=== PATIENT | female | born 1950 | race Caucasian/White ===

== ENCOUNTER 2022-03-19 09:14 | Outpatient (REF) | payer MEDICARE, BC, SELFPAY ==
--- NOTE | ~2022-03-19 | MM_ITS ---
EXAMINATION: MM SCREENING DIGITAL BREAST TOMOSYNTHESIS, BILATERAL CLINICAL INFORMATION: Screening. Asymptomatic. The lifetime risk of breast cancer based on the Tyrer-Cuzick Model is 10%. COMPARISON: Outside mammography: 07/09/2020, 07/06/2019, 02/07/2018 (Melissa Sorto). TECHNIQUE: Digital breast tomosynthesis is performed in both the craniocaudal and mediolateral oblique views along with computer-aided detection (CAD). Synthesized 2D images are generated from the tomosynthesis. Additional left MLO view is provided. FINDINGS: The breasts are heterogeneously dense, which may obscure small masses (ACR BI-RADS breast composition Category c). There is no significant mass, developing density, architectural abnormality. There are scattered benign round calcifications in both breasts. The axilla and skin contours are unremarkable. 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 MM/MM tomosynthesis screening BI IMPRESSION: No significant changes from prior studies. ASSESSMENT: BI-RADS 2: Benign RECOMMENDATION: Routine annual mammography screening. This patient's information was entered into a reminder system with a target due date for their next mammogram.
== END 2022-03-19 09:15 | disposition home or self-care (01) ==
LOC: HO.MAMMO 09:14
PROVIDERS: Visit Provider Internal Medicine
DX: Z12.31 Encounter for screening mammogram for malignant neoplasm of breast (principal)
CPT/HCPCS: 77063; 77067

== ENCOUNTER 2023-06-14 09:59 | Outpatient (REF) | payer MEDICARE, BC, SELFPAY ==
[2023-06-14 11:29] LABS: MANUAL DIFF FLAG NO
[2023-06-14 11:36] LABS: Basophils Absolute Auto 0.1 X10*3/uL (0.0-0.2); Eosinophils Absolute Auto 0.3 X10*3/uL (0.0-0.4); Eosinophils Percent Auto 3.6 % (0-4); Imm Gran Abs Auto 0.02 X10*3/uL (0.00-0.03); Imm Gran Pct Auto 0.2 % (0.0-0.4); Lymphocytes Absolute Auto 2.5 X10*3/uL (1.2-4.9); Lymphocytes Percent Auto 29.2 % (20-40); Mean Corpuscular HGB Conc 33.3 g/dl (31.0-35.0); Mean Corpuscular Hemoglobin 29.8 pg (27.0-33.0); Mean Corpuscular Volume 89.4 fL (80.0-98.0); Mean Platelet Volume 11.8 fL (9.4-12.3); Monocytes Absolute Auto 0.9 X10*3/uL (0.1-1.2); Monocytes Percent Auto 10.6 % (2-11); Neutrophils Absolute Auto 4.7 x10*3/uL (2.0-8.3); Neutrophils Percent Auto 55.4 % (45-73); Platelet Count 211 X10*3/uL (160-400); White Blood Count 8.4 X10*3/uL (4.8-10.8)
[2023-06-14 12:16] LABS: Alanine Aminotransferase 15 U/L (0-31); Albumin Level 4.5 g/dL (3.5-5.0); Alkaline Phosphatase 47 U/L (39-117); Anion Gap 17 (12-20); Aspartate Amino Transferase 21 U/L (5-31); Bilirubin Total 0.8 mg/dL (0.0-1.0); Blood Urea Nitrogen 9 mg/dL (9-16); Calcium 10.6 mg/dL (8.4-10.2); Carbon Dioxide 23 mmol/L (22-29); Chloride 99 mmol/L (96-108); Cholesterol 194 mg/dL (<200); Estimated Glomerular Filt Rate > 60; Glucose Random 98 mg/dL (60-115); HDL Cholesterol 84 mg/dL (>40); LDL Cholesterol Calculated 91 mg/dL (<100); Potassium 4.5 mmol/L (3.3-5.1); Sodium 134 mmol/L (135-145); Total Protein 8.5 g/dL (6.5-8.0); Triglycerides 95 mg/dL (<150)
== END 2023-06-14 10:00 | disposition home or self-care (01) ==
LOC: HO.HHCL 09:59
PROVIDERS: Visit Provider Nurse Practitioner Family
DX: I10 Essential (primary) hypertension (principal)
CPT/HCPCS: 36415; 80053; 80061; 85025

== ENCOUNTER 2023-08-04 09:34 | Outpatient (REF) | payer MEDICARE, BC, SELFPAY ==
--- NOTE | ~2023-08-04 | MR_ITS ---
EXAMINATION: MR BREAST WITHOUT AND WITH CONTRAST, BILATERAL CLINICAL INFORMATION: High-risk screening. Family history of breast cancer, paternal grandmother. COMPARISON: No previous breast MRI. TECHNIQUE: Imaging was performed with a dedicated breast coil. Prior to the administration of contrast, bilateral axial T1 and bilateral axial T2 weighted sequences were obtained. After the uneventful administration of?10 mL of Gadavist, dynamic contrast-enhanced VIBRANT series through the breasts in the axial plane were performed. Subtracted images were performed and reviewed. A delayed sagittal sequence through both breasts was acquired. Additionally, CAD post-processing, including maximum intensity projections, 3-D reconstructions and kinetic analysis, were performed an independent workstation and reviewed by the interpreting radiologist is a portion of this exam. FINDINGS: LEFT BREAST: There are scattered foci of enhancement. No suspicious masslike or non-masslike enhancement. No abnormal skin thickening or nipple retraction. No abnormal architectural distortion. Review of the T2 weighted images demonstrates no fibrocystic changes or dilated ducts. Review of kinetic images reveals no additional findings. RIGHT BREAST: In the 8:00 position of the right breast there is a short segment of nonmass enhancement located 8.2 cm from the nipple measuring 7 mm in size. No recent mammogram to compare 2. Recommend mammographic correlation. The kinetics are plateau or type II. If no mammographic correlate to this finding can be identified, consider MRI guided biopsy for further evaluation. No other suspicious masslike or non-masslike enhancement. No abnormal skin thickening or nipple retraction. No abnormal architectural distortion. Review of the T2 weighted images demonstrates no fibrocystic changes or dilated ducts. Review of kinetic images reveals no additional findings. There is no suspicious internal mammary chain or axillary adenopathy. Partially imaged T2 hyperintense structure within the left lobe of the liver is consistent with a benign cyst. MR/MR breast BI wo/w con IMPRESSION: No MR specific evidence of left breast malignancy. Indeterminate right breast nonmass enhancement, 8:00. Mammographic correlation recommended. ASSESSMENT: LEFT BREAST: BI-RADS 1-Negative RIGHT BREAST: BI-RADS 0 - Incomplete. RECOMMENDATIONS: Mammographic correlation recommended. Patient overdue for screening mammogram.
[2023-08-04] MEDS: gadobutroL 10 ML VIAL IVPUSH (10:54)
== END 2023-08-04 09:35 | disposition home or self-care (01) ==
LOC: HO.MRI 09:34
PROVIDERS: PCP Nurse Practitioner Family; Visit Provider Nurse Practitioner Family
DX: R92.333 Mammographic heterogeneous density, bilateral breasts (principal); R92.8 Other abnormal and inconclusive findings on diagnostic imaging of breast
CPT/HCPCS: 77049; A9585

== ENCOUNTER 2024-07-20 14:51 | Outpatient (REF) | payer MEDICARE, BC, SELFPAY ==
[2024-07-20 16:15] LABS: MANUAL DIFF FLAG NO
[2024-07-20 16:29] LABS: Basophils Absolute Auto 0.1 X10*3/uL (0.0-0.2); Basophils Percent Auto 0.8 % (0-2); Eosinophils Absolute Auto 0.3 X10*3/uL (0.0-0.4); Eosinophils Percent Auto 3.7 % (0-4); Hemoglobin 13.6 g/dl (12.0-16.0); Imm Gran Abs Auto 0.02 X10*3/uL (0.00-0.03); Imm Gran Pct Auto 0.2 % (0.0-0.4); Lymphocytes Percent Auto 34.1 % (20-40); Mean Corpuscular Hemoglobin 28.9 pg (27.0-33.0); Mean Corpuscular Volume 84.9 fL (80.0-98.0); Mean Platelet Volume 12.2 fL (9.4-12.3); Monocytes Absolute Auto 0.9 X10*3/uL (0.1-1.2); Monocytes Percent Auto 10.3 % (2-11); Neutrophils Absolute Auto 4.4 x10*3/uL (2.0-8.3); Neutrophils Percent Auto 50.9 % (45-73); Platelet Count 253 X10*3/uL (160-400); Red Blood Count 4.71 X10*6/uL (4.20-5.50); Red Cell Distribution Width 13.6 % (11.0-16.0); White Blood Count 8.7 X10*3/uL (4.8-10.8)
[2024-07-20 16:58] LABS: Alanine Aminotransferase 20 U/L (0-31); Albumin Level 4.4 g/dL (3.5-5.0); Alkaline Phosphatase 50 U/L (39-117); Anion Gap 11 (12-20); Aspartate Amino Transferase 32 U/L (5-31); Bilirubin Total 0.5 mg/dL (0.0-1.0); Blood Urea Nitrogen 11 mg/dL (9-16); Calcium 9.8 mg/dL (8.4-10.2); Carbon Dioxide 26 mmol/L (22-29); Chloride 98 mmol/L (96-108); Cholesterol 184 mg/dL (<200); Estimated Glomerular Filt Rate > 60; Glucose Random 97 mg/dL (60-115); HDL Cholesterol 85 mg/dL (>40); LDL Cholesterol Calculated 81 mg/dL (<100); Sodium 131 mmol/L (135-145); Total Protein 7.7 g/dL (6.5-8.0); Triglycerides 92 mg/dL (<150)
[2024-07-20 17:15] LABS: TSH reflex Free T4 1.43 uIU/mL (0.32-4.0)
[2024-07-21 08:03] LABS: ~Hepatitis C Antibody Nonreactive (Nonreactive)
== END 2024-07-20 14:52 | disposition home or self-care (01) ==
LOC: HO.HHCL 14:51
PROVIDERS: Visit Provider Internal Medicine
DX: I10 Essential (primary) hypertension (principal); M79.7 Fibromyalgia
CPT/HCPCS: 36415; 80053; 80061; 84443; 85025; 86803

== ENCOUNTER 2024-12-27 11:57 | Outpatient (REF) | payer MEDICARE, BC, SELFPAY ==
--- OUTSIDE RECORDS SUMMARY | 2024-12-27 13:28 | XMS_ITS | Encounter Summary ---
Author Organization [employer] Address [address] [facility] [address] [place] [address] Care Team Providers Care Glove Examiner Name Role Phone Kat Parkinson Primary Care Provider [phone] Lila, Darien MAYER Primary Care Provider [phone] Shanel Euceda NP Primary Care Provider [phone] Anamika Phelps MD Primary Care Provide r Reason for Referral * Imaging (Routine) - Closed Specialty Diagnoses / Procedures Referred By Rita botello Referred To Contact Radiology Diagnoses Abnormal finding on mammography Procedures BI Mammogram Diagnostic Tomosynthesis Bilateral Kat Parkinson FNP [address] [place] [address] Phone: tel: fax: [address] Phone: tel: fax: Referral ID Status Reason Start Date Expiration Date Visits Re quested Visits Authorized [id number] Closed 11/02/2023 11/01/2024 1 1 Encounter Details Date Type Department Care Team (Late st Contact Info) Description 11/02/2023 Orders Only [facility] [address] [place] [address] Kat Parkinson FNP [address] [place] [address] Abnormal finding on mammography (Primary Dx) Social History Tobacco Use Types Packs/Day Years Used Date Smoking Tobacco: Former Cigarettes Smokeless Tobacco: Never Comments:Quit 47 years ago Alcohol Use Standard Drinks/Week Comments Yes 0 (1 standard drink = 0.6 oz pur e alcohol) 6 glasses per week Depression Answer Date Recorded Patient Health Questionnaire-9 Score 7 06/14/2023 Patient Health Questionnaire-9 Score 7 06/14/2023 Last PHQ-9: Questionnaire Data Not on file 1 Housing Stability Answer Date Recorded What is your housing situation today? I have ranjana brooks 06/14/[address] you li ve. Do you have problems with any of the following? None of the above 06/14/2023 Food Insecurity Answer Date Recorded Within the past 12 months, y ou worried that your food would run out before you got money to buy more: Never True 06/14/2023 Within the past 12 months,th e food you bought just didn't last and you didn't have enough money to get more: Never True Transportation Answer Date Recorded In the past 12 months, has l ack of transportation kept you from medical appts, meetings, work or from getting things needed for daily living? No 06/14/2023 Utilities Answer Date Recorded In the past 12 months, has t he electric, gas, oil or water company threatened to shut off services in your home? No 06/14/2023 Depression Answer Date Recorded Patient Health Questionnaire-2 Score 1 06/14/2023 Comments Unknown Sex and Gender Information Value Date Recorded Sex Assigned at Female 06/29/2022 10:40 AM EDT Legal Sex Female 10:40 AM EDT Gender Identity Female 06/29/2022 10:40 AM EDT Sexual Orientation Straight 06/29/2022 10 :40 AM EDT documented as of this encounter Plan of Treatment Scheduled Orders Name Type Priority Associated Diagnoses Orde r Schedule BI Mammogram Diagnostic Tomosynthesis Bilateral Imaging Routine Abnormal finding on mammography Expected: 11/02/2023, Expires: 01/01/2025 documented as of this encounter Visit Diagnoses Diagnosis Abnormal finding on mammography- Primary documented in this encounter Additional Health Concerns Assessment Noted Time PHQ-9 Depression Total Score: 7 06/14/20 23 10:28 AM EDT documented as of this encounter Care Teams Glove Examiner Relationship Specialty Start Date End Date Kat Parkinson FNP [address] [place] [address] PCP - General Family Medicine 06/09/22 05/02/24 Darien Sharp MD [address] [place] [address] [id number] PCP - General Internal Medicine 05/03/24 05/29/24 Shanel Euceda NP [address] [place], [place] [id number] PCP - General Family Medicine 05/30/24 06/20/24 Anamika Phelps MD [address] [place] [address] [id number] PCP - General Internal Medicine 06/21/24 documented as of this encounter
--- OUTSIDE RECORDS SUMMARY | 2024-12-27 13:28 | XMS_ITS | Encounter Summary ---
Author Organization [employer] Address [address] [facility] [address] [place] [address] Care Team Providers Care Cnc Operator Name Role Phone Kat Parkinson Primary Care Provider [phone] Darien Sharp MD Primary Care Provider [phone] Shanel Euceda NP Primary Care Provider [phone] Anamika Phelps MD Primary Care Provide r Encounter Details Date Type Department Care Team (Late st Contact Info) Description 08/07/2022 Orders Only [facility] [address] [place] [address] Kat Parkinson FNP [address] [place] [address] Primary hypertension (Primary Dx) Social History Tobacco Use Types Packs/Day Years Used Date Smoking Tobacco: Never Assessed Comments Unknown Sex and Gender Information Value Date Recorded Sex Assigned at Female 06/29/2022 10:40 AM EDT Legal Sex Female 10:40 AM EDT Gender Identity Female 06/29/2022 10:40 AM EDT Sexual Orientation Straight 06/29/2022 10 :40 AM EDT COVID-19 Exposure Response Date Recorded In the last 10 days, have yo u been in contact with someone who was confirmed or suspected to have Coronavirus/COVID-19? No / Unsure 08/07/2022 2:14 PM EST documented as of this encounter Plan of Treatment Scheduled Orders Name Type Priority Associated Diagnoses Orde r Schedule Basic Metabolic Panel Lab Routine Primary hypertension Expected: 08/07/2022 (Approximate), Expires: 08/07/2023 documented as of this encounter Visit Diagnoses Diagnosis Primary hypertension- Primary Unspecified essential hypertension documented in this encounter Care Teams Cnc Operator Relationship Specialty Start Date End Date Kat Parkinson FNP [address] [place] [address] PCP - General Family Medicine 06/09/22 05/02/24 Darien Sharp MD [address] [place] [id number] PCP - General Internal Medicine 05/03/24 05/29/24 Shanel Euceda NP [address] [place] [address] [id number] PCP - General Family Medicine 05/30/24 06/20/24 Anamika Phelps MD [address] [place] [id number] PCP - General Internal Medicine 06/21/24 documented as of this encounter
--- OUTSIDE RECORDS SUMMARY | 2024-12-27 13:28 | XMS_ITS | Clinical Summary ---
Author Organization [employer] Address [address] [facility] [address] [place] [address] Care Team Providers Care Business Test Analyst Name Role Phone Anamika Phelps MD Primary Care Provide r Allergies Active Allergy Reactions Criticality Noted Date Comments Cefuroxime Nausea 09/03/2023 Modified Tree Tyrosine Adsorbate Medications cholecalciferol (Vitamin D-3) 25 MCG (1000 UT) tablet Take 1 tablet (25 mcg) by mouth Once per day. 90 tablet 3 01/03/2024 5 Active cyanocobalamin (Vitamin B-12) 500 MCG tablet Take 1 tablet (500 mcg) by mouth Once per day. Take 1 Tablet by Oral route every day 90 tablet 3 01/03/2024 5 Active lisinopril 30 MG tabletIndication s:Hypertension, unspecified type Take 1 tablet (30 mg) by mouth Once per day. 90 tablet 3 05/30/2024 5 Active sodium chloride 1 g tabletIndication s:Hyponatremia Take 1 tablet (1 g) by mouth every 12 (twelve) hours. 6 tablet 08/04/2024 5 Active amLODIPine (Norvasc) 10 MG tabletIndication s:Hyponatremia TAKE 1 TABLET BY MOUTH EVERY DAY 90 tablet 1 10/31/2024 Active Active Problems Problem Noted Date Diagnosed Date Edema of left lower extremity 12/27/2024 Assessment & Plan (12/27/2024 12:37 PM EDT): DVT is unlikely, I will order Doppler ultrasound refer patient to vascular I will also prescribe for patient compression stockings Varicose veins of both legs with edema Assessment & Plan (12/27/2024 12:36 PM EDT): I will order Doppler ultrasound and refer patient to vascular Hyponatremia 12/27/2024 Assessment & Plan (12/27/2024 12:37 PM EDT): I will order a BMP to monitor the sodium level Encounter for screening mamm ogram for malignant neoplasm of breast 12/27/2024 Colon cancer screening declined 12/27/2024 Fibromyalgia 07/20/2024 Assessment & Plan (07/20/2024 4:15 PM EST): Patient was educated about multidisciplinary approach for her condition, it was advise cardiovascular exercise, maintain hydration, treat anxiety/depression and take medications as directed Primary hypertension 07/20/2024 Assessment & Plan (12/27/2024 12:36 PM EDT): Advised: - Aerobic exercise to reduce BP. Initial goal of 30 min walk 3-5x/week. Increase as tolerated. - low-sodium diet (goal: <2g/day) and heart healthy diet such as DASH to reduce BP and prevent ASCVD. - Home BP monitoring 1-2 x day with goal of <140/90. - Seek immediate medical attention for chest pain, palpitations, SOB, syncope, or sudden changes in mental status. - Do not change or discontinue current prescriptions without first consulting health care provider Assessment & Plan (07/20/2024 4:14 PM EST): Maintenance: BMP: ordered Lipid Panel: ordered ASCVD Risk: Calculate pending updated labs -Today BP elevated check with both manual and electronic device, she declines prescription for BP machine, RTC 2 weeks with nurse for BP check - Aerobic exercise to reduce BP. Initial goal of 30 min walk 3-5x/week. Increase as tolerated. - low-sodium diet (goal: <2g/day) and heart healthy diet such as DASH to reduce BP and prevent ASCVD. - Home BP monitoring 1-2 x day with goal of <140/90. - Seek immediate medical attention for chest pain, palpitations, SOB, syncope, or sudden changes in mental status. - Do not change or discontinue current prescriptions without first consulting health care provider Encounters Date Type Department Care Team Description 12/27/2024 10:45 AM EDT Office Visit [facility] [address] [place] [phone] Anamika Phelps MD Edema of left lower extremity (Primary Dx); Varicose veins of both legs with edema; Hyponatremia; Primary hypertension; Encounter for screening mammogram for malignant neoplasm of breast; Colon cancer screening declined; Encounter for immunization 12/27/2024 Travel 12/20/2024 Patient Outreach [address] [id number] Anamika Phelps MD Pre-visit Planning (Pre visit planning LVM ) 11/10/2024 Population Health Risk Score [facility] ([facility]) Department [address] [place] [phone] Provider, Population Health Generic 11/03/[address] [phone] Anamika Phelps MD 10/30/[address] [phone] Anamika Phelps MD Hyponatremia 10/12/2024 Patient Outreach [address] [address] Anamika Phelps MD Pre-visit Planning ((Unable to reach for PVP screening, LVM)) from Last 3 Months Immunizations Name Administration Dates Next Due Pneumococcal Conjugate PCV 13 02/17/2018 Pneumococcal Conjugate PCV 20 12/27/2024 Td (adult), unspecified 04/29/2005 Tdap 12/09/2015 Family History Medical History Relation Name Comments Heart disease Father Alzheimer's disease Mother Stroke Mother Relation Name Status Comments Father Mother Social History Tobacco Use Types Packs/Day Years Used Date Smoking Tobacco: Former Cigarettes Passive Smoke Exposure: Past Smokeless Tobacco: Never Tobacco Cessation:Counseling Given: Not Answered Comments:Quit 47 years ago Alcohol Use Standard Drinks/Week Comments Yes 0 (1 standard drink = 0.6 oz pur e alcohol) 6 glasses per week Depression Answer Date Recorded Patient Health Questionnaire-9 Score 0 07/20/2024 Patient Health Questionnaire-9 Score 0 07/20/2024 Last PHQ-9: Questionnaire Data Not on file 1 09/19/2023 Housing Stability Answer Date Recorded What is your housing situation today? I have ranjana brooks 07/20/[address] you li ve. Do you have problems with any of the following? None of the above 07/20/2024 Food Insecurity Answer Date Recorded Within the past 12 months, y ou worried that your food would run out before you got money to buy more: Never True 07/20/2024 Within the past 12 months,th e food you bought just didn't last and you didn't have enough money to get more: Never True Transportation Answer Date Recorded In the past 12 months, has l ack of transportation kept you from medical appts, meetings, work or from getting things needed for daily living? No 07/20/2024 Utilities Answer Date Recorded In the past 12 months, has t he electric, gas, oil or water company threatened to shut off services in your home? No 07/20/2024 Depression Answer Date Recorded Patient Health Questionnaire-2 Score 0 07/20/2024 Internet Access Answer Date Recorded Internet Access Q1 No 07/20/2024 Internet Access Q2 I do not want or need it 07/01 Comments Unknown Sex and Gender Information Value Date Recorded Sex Assigned at Female 06/29/2022 10:40 AM EDT Legal Sex Female 10:40 AM EDT Gender Identity Female 06/29/2022 10:40 AM EDT Sexual Orientation Straight 06/29/2022 10 :40 AM EDT Last Filed Vital Signs Vital Sign Reading Time Taken Comments Blood Pressure 128/72 12/27/2024 10:46 AM EDT Pulse 64 12/27/2024 10:46 AM EDT Temperature 36.4 ??C (97.6 ??F) 12/27/2024 10:46 AM E DT Respiratory Rate 18 12/27/2024 10:46 AM EDT Oxygen Saturation 98% 08/03/2024 12:55 PM EST Inhaled Oxygen Concentration - - Weight 93.7 kg (206 lb 9.6 oz) 12/27/2024 10:46 AM EDT Height 172.7 cm (5' 8 ) 12/27/2024 10:46 AM EDT Body Mass Index 31.41 12/27/2024 10:46 AM EDT Plan of Treatment Health Maintenance Due Date Last Done Comments CT Colonography 1952 FIT DNA/Cologuard 1950 FIT 1950 FOBT 1950 Sigmoidoscopy 1950 Zoster Vaccines (1 of 2) 2002 COVID-19 Vaccine ( season) 2024 Influenza Vaccine (#1) 2024 Colonoscopy 08/20/2024 08/20/2014 Colorectal Cancer Screening 08/20/2024 Alcohol/Substance Use Screening 07/20/2025 07/20/2024 Depression Screening 07/20/2025 07/20/2024, 07/20/20 24 SDOH Screening 07/20/2025 07/20/2024 Mammogram 08/04/2025 08/04/2023, 02/28, 07/09/2020, Additional history exists DTaP/Tdap/Td Vaccines (2 - Td or Tdap) 12/08/2025 12/09/2015, 04/29/2005 Tobacco Screening 12/27/2025 12/27/2024 RSV Patients and Patients Aged 60 years or older (1 - 1-dose 75+ series) 2027 Lipid Panel 07/20/2029 07/20/2024, 05/30, 03/05/2022 Hepatitis C Screening Completed 07/20/2024 Pneumococcal Vaccine: 50+ Years Completed 12/27/2024, 02/17/2018 HIB Vaccines Aged Out No longer eligi ble based on patient's age to complete this topic HPV Vaccines Aged Out No longer eligi ble based on patient's age to complete this topic Hepatitis A Vaccines Aged Out No long er eligible based on patient's age to complete this topic Hepatitis B Vaccines Aged Out No long er eligible based on patient's age to complete this topic IPV Vaccines Aged Out No longer eligi ble based on patient's age to complete this topic Meningococcal Vaccine Aged Out No heidi radha eligible based on patient's age to complete this topic RSV under 20 months Aged Out No longe r eligible based on patient's age to complete this topic Rotavirus Vaccines Aged Out No longer eligible based on patient's age to complete this topic Procedures Procedure Name Priority Date/Time Associated Diagnosis Comments HEPATITIS C AB W/REFL TO HCV RNA, QN, PCR Routine 07/20/2024 2:53 PM EST Hypertension, unspecified type LIPID PANEL, STANDARD Routine 07/20/2024 2:53 PM EST Hypertension, unspecified type BI MR BREAST W AND WO CONTRAST BILATERAL Routine 08/04/2023 10:43 AM EST Heterogeneously dense tissue of both breasts on mammography Abnormal finding on mammography from Last 3 Months or Most Recently Relevant to Health Maintenance Results * Hepatitis C Antibody with Reflex to HCV, RNA, Quantitative, Real-Time PCR (07/20/2024 2:53 PM EST) Hepatitis C Antibody Nonreactive Nonreactive [facility] Comment:Antibodies to HCV no t detected; does not exclude early acuteHCV infection. Blood Venous blood specimen / Unknown 07/20/2024 2:53 PM EST 07/20/2024 4:17 PM EST us Anamika Apple MD LAB BLOOD ORDERABLES Final Result [facility] [address] [place] [phone] * Lipid Panel, Standard (07/20/2024 2:53 PM EST) Triglycerides 92 <150 mg/dL [facility] Comment:Desirable Triglyceri de: less than 150 mg/dLBorderline High Triglyceride 150-199 mg/dLHigh Triglyceride: 200-499 mg/dLVery High Triglyceride: greater than or equal to 5OO mg/dL Cholesterol 184 <200 mg/dL [facility] Comment:Desirable Cholestero l: less than 200 mg/dLBorderline High Cholesterol: 200-239 mg/dLHigh Cholesterol: greater than 239 mg/dL LDL Cholesterol Calculated 81 <100 mg/dL [facility] Comment:Desirable LDL: less than 100 mg/dLNear Optimal/Above Optimal LDL: 110- 129 mg/dLBorderline High LDL: 130-159 mg/dLHigh LDL: 160-189 mg/dLVery High LDL: greater than or equal to 190 mg/dL HDL Cholesterol 85 >40 mg/dL [facility] Comment:Desirable HDL: great er than 40 mg/dL Note: This HDL assay may give artificially low results in patients with liver disease. Blood Venous blood specimen / Unknown 07/20/2024 2:53 PM EST 07/20/2024 4:21 PM EST us Anamika Apple MD LAB BLOOD ORDERABLES Final Result [facility] [address] [place] [address] [phone] * BI MR Breast w and w/o Contrast Bilateral (08/04/2023 10:43 AM EST) Anatomical Region Laterality Modality Breast Bilateral Magnetic Resonan ce 08/04/2023 10:4 3 AM EST Narrative 08/06/2023 4:51 PM EST ? [facility] ?[address] ?[place] [address] ? Magnetic Resonance Report ? Signed ? Patient: Dayan Epperson ?MR#: [id number] ?? 209 ? : 1950 ?Acct:[id number] ? Age/Sex: 73 / F ?ADM Date: 08/04/23 ? Loc: HO.MRI ? Attending Dr: Kat Parkinson DENTAL TECHNICIAN METAL ? Ordering Physician: Kat Parkinson DENTAL TECHNICIAN METAL ?? Date of Service: 08/04/23 ?? Procedure(s): MR breast BI wo/w con ?? Accession Number(s): [id number] ? cc: Kat Parkinson DENTAL TECHNICIAN METAL ? EXAMINATION: ?? MR BREAST WITHOUT AND WITH CONTRAST, BILATERAL ? CLINICAL INFORMATION: ?? High-risk screening. Family history of breast cancer, paternal ?? grandmother. ? COMPARISON: ?? No previous breast MRI. ? TECHNIQUE: ?? Imaging was performed with a dedicated breast coil. Prior to the ?? administration of contrast, bilateral axial T1 and bilateral axial T2 ?? weighted sequences were obtained. After the uneventful administration ?? of?10 mL of Gadavist, dynamic contrast-enhanced VIBRANT series through ?? the breasts in the axial plane were performed. Subtracted images were ?? performed and reviewed. A delayed sagittal sequence through both ?? breasts was acquired. Additionally, CAD post-processing, including ?? maximum intensity projections, 3-D reconstructions and kinetic ?? analysis, were performed an independent workstation and reviewed by the ?? interpreting radiologist is a portion of this exam. ? FINDINGS: ? LEFT BREAST: There are scattered foci of enhancement. No suspicious ?? masslike or non-masslike enhancement. No abnormal skin thickening or ?? nipple retraction. No abnormal architectural distortion. Review of the ?? T2 weighted images demonstrates no fibrocystic changes or dilated ?? ducts. Review of kinetic images reveals no additional findings. ? RIGHT BREAST: In the 8:00 position of the right breast there is a short ?? segment of nonmass enhancement located 8.2 cm from the nipple measuring ?? 7 mm in size. No recent mammogram to compare 2. Recommend mammographic ?? correlation. The kinetics are plateau or type II. If no mammographic ?? correlate to this finding can be identified, consider MRI guided biopsy ?? for further evaluation. No other suspicious masslike or non-masslike ?? enhancement. No abnormal skin thickening or nipple retraction. No ?? abnormal architectural distortion. Review of the T2 weighted images ?? demonstrates no fibrocystic changes or dilated ducts. Review of kinetic ?? images reveals no additional findings. ? There is no suspicious internal mammary chain or axillary adenopathy. ? Partially imaged T2 hyperintense structure within the left lobe of the ?? liver is consistent with a benign cyst. ? MR/MR breast BI wo/w con ?? IMPRESSION: ?? No MR specific evidence of left breast malignancy. ? Indeterminate right breast nonmass enhancement, 8:00. Mammographic ?? correlation recommended. ? ASSESSMENT: ?? LEFT BREAST: BI-RADS 1-Negative ? RIGHT BREAST: BI-RADS 0 - Incomplete. ? RECOMMENDATIONS: ?? Mammographic correlation recommended. Patient overdue for screening ?? mammogram. ? Dictated By: ?Jaqueline Larson MD ? Signed By: ?<Electronically signed by Jaqueline Larson MD in OV> ?08/06/237 ? DD/ ? TD/TT: ? Casing Blower: BATOOL ? Procedure Note Donotuseinterpreter, Image - 08/06/2023 [place] [address] Magnetic Resonance Report Signed Patient: Dayan Epperson#: [id number] 209 : 2Acct:[id number] Age/Sex: 73 / FADM Date: 08/04/23 Loc: HO.MRI Attending Dr: Kat Parkinson NP Ordering Physician: Kat Parkinson NP Date of Service: 08/04/23 Procedure(s): MR breast BI wo/w con Accession Number(s): [id number] cc: Kat Parkinson NP EXAMINATION: MR BREAST WITHOUT AND WITH CONTRAST, BILATERAL CLINICAL INFORMATION: High-risk screening. Family history of breast cancer, paternal grandmother. COMPARISON: No previous breast MRI. TECHNIQUE: Imaging was performed with a dedicated breast coil. Prior to the administration of contrast, bilateral axial T1 and bilateral axial T2 weighted sequences were obtained. After the uneventful administration of?10 mL of Gadavist, dynamic contrast-enhanced VIBRANT series through the breasts in the axial plane were performed. Subtracted images were performed and reviewed. A delayed sagittal sequence through both breasts was acquired. Additionally, CAD post-processing, including maximum intensity projections, 3-D reconstructions and kinetic analysis, were performed an independent workstation and reviewed by the interpreting radiologist is a portion of this exam. FINDINGS: LEFT BREAST: There are scattered foci of enhancement. No suspicious masslike or non-masslike enhancement. No abnormal skin thickening or nipple retraction. No abnormal architectural distortion. Review of the T2 weighted images demonstrates no fibrocystic changes or dilated ducts. Review of kinetic images reveals no additional findings. RIGHT BREAST: In the 8:00 position of the right breast there is a short segment of nonmass enhancement located 8.2 cm from the nipple measuring 7 mm in size. No recent mammogram to compare 2. Recommend mammographic correlation. The kinetics are plateau or type II. If no mammographic correlate to this finding can be identified, consider MRI guided biopsy for further evaluation. No other suspicious masslike or non-masslike enhancement. No abnormal skin thickening or nipple retraction. No abnormal architectural distortion. Review of the T2 weighted images demonstrates no fibrocystic changes or dilated ducts. Review of kinetic images reveals no additional findings. There is no suspicious internal mammary chain or axillary adenopathy. Partially imaged T2 hyperintense structure within the left lobe of the liver is consistent with a benign cyst. MR/MR breast BI wo/w con IMPRESSION: No MR specific evidence of left breast malignancy. Indeterminate right breast nonmass enhancement, 8:00. Mammographic correlation recommended. ASSESSMENT: LEFT BREAST: BI-RADS 1-Negative RIGHT BREAST: BI-RADS 0 - Incomplete. RECOMMENDATIONS: Mammographic correlation recommended. Patient overdue for screening mammogram. Dictated By: Jaqueline Larson MD Signed By: <Electronically signed by Jaqueline Larson MD in OV> 08/06/23 1647 DD/ 1043 TD/TT: Casing Blower: BATOOL Kat Parkinson WASTE DUSTER IM MRI PROCEDURES Final Result from Last 3 Months or Most Recently Relevant to Health Maintenance Insurance [facility] MEDEX CARE MEDICARE Care Teams Business Test Analyst Relationship Specialty Start Date End Date Anamika Phelps MD [address] [place] [phone] PCP - General Internal Medicine 06/21/24
--- OUTSIDE RECORDS SUMMARY | 2024-12-27 13:28 | XMS_ITS | Encounter Summary ---
Author Organization [employer] Address [address] [facility] 7t [place] [address] Care Team Providers Care Tight Cooper Name Role Phone Anamika Phelps MD Primary Care Provide r Reason for Referral * Imaging (Routine) - Authorized Specialty Diagnoses / Procedures Referred By Rita botello Referred To Contact Cardiology Diagnoses Edema of left lower extremity Varicose veins of both legs with edema Procedures Vascular US lower extremity venous duplex bilateral Anamika Phelps MD [address] [place] [address] Phone: tel: fax: [address] Phone: tel: fax: Referral ID Status Reason Start Date Expiration Date Visits Requested Visits Authorized [id number] Authorized Perform Procedure 12/27/2024 12/27/2025 1 1 * Consultation (Routine) - Pending Review Specialty Diagnoses / Procedures Referred By Rita botello Referred To Contact Vascular Surgery Diagnoses Edema of left lower extremity Varicose veins of both legs with edema Anamika Phelps MD [address] [place] [address] Phone: tel: fax: Referral ID Status Reason Start Date Expiration Date Visits Requested Visits Authorized [id number] Pending Review Specialty Services Required 12/27/2024 12/27/2025 1 1 Encounter Details Date Type Department Care Team (Late st Contact Info) Description 12/27/2024 10:45 AM EDT Office Visit [facility] MEDICINE [address] [place] [address] Anamika Phelps MD [address] [place] [address] Edema of left lower extremity (Primary Dx); Varicose veins of both legs with edema; Hyponatremia; Primary hypertension; Encounter for screening mammogram for malignant neoplasm of breast; Colon cancer screening declined; Encounter for immunization Social History Tobacco Use Types Packs/Day Years Used Date Smoking Tobacco: Former Cigarettes Passive Smoke Exposure: Past Smokeless Tobacco: Never Comments:Quit 47 years ago [...] is your housing situation today? I have ranjanaamilcar brooks 07/20/[address] you [...] AM EDT documented as of this encounter Last Filed Vital Signs Vital Sign Reading Time Taken Comments Blood Pressure 128/72 12/27/2024 10:46 AM EDT Pulse 64 12/27/2024 10:46 AM EDT Temperature 36.4 ??C (97.6 ??F) 12/27/2024 10:46 AM E DT Respiratory Rate 18 12/27/2024 10:46 AM EDT Oxygen Saturation - - Inhaled Oxygen Concentration - - Weight 93.7 kg (206 lb 9.6 oz) 12/27/2024 10:46 AM EDT Height 172.7 cm (5' 8 ) 12/27/2024 10:46 AM EDT Body Mass Index 31.41 12/27/2024 10:46 AM EDT documented in this encounter Progress Notes * Anamika Apple MD - 12/27/2024 10:45 AM EDT SUBJECTIVE: Kwesi Epperson is a 74 y.o. year old female who presents for comprehensive. Concerns for today's visit: Occupation:retired Lives with:alone Social Hx: Occasionally a glass of wine drinking EtOH, denies smoking cigarettes and denies recreational drug use. Diet:regular Exercise:walks every day Colonoscopy:done in 2013 declines new order Hospitalizations/Surgeries: Eye Care:Patient will schedule her appointment Dental Care:Patient will set up her appointment PMHx:see below Immunizations: PCV20 today Acute Concerns: Since August 2024 edema on left LE, patient denies recent travels or prolonged stay in bed, patient reports edema goes away after elevation of the legs at at night but then he returns, patient also is complaining of painful prominent varicose veins on both legs Social History Social History Narrative Not on file Patient Active Problem List Diagnosis Fibromyalgia Primary hypertension Edema of left lower extremity Varicose veins of both legs with edema Hyponatremia Encounter for screening mammogram for malignant neoplasm of breast Colon cancer screening declined Family History Problem Relation Name Age of Onset Alzheimer's disease Mother Stroke Mother Heart disease Father Review of Systems Constitutional: Negative. HENT: Negative. Respiratory: Negative. Cardiovascular: Positive for leg swelling. Negative for chest pain and palpitations. Musculoskeletal: Positive for arthralgias and myalgias. OBJECTIVE: Vitals: 12/27/24 1046 BP: 128/72 BP Location: Left arm Patient Position: Sitting BP Cuff Size: Large adult Pulse: 64 Resp: 18 Temp: 97.6 ??F (36.4 ??C) TempSrc: Oral Weight: 206 lb 9.6 oz (93.7 kg) Height: 5' 8 (1.727 m) Physical Exam Constitutional: Appearance: Normal appearance. Cardiovascular: Rate and Rhythm: Normal rate and regular rhythm. Pulmonary: Effort: Pulmonary effort is normal. Breath sounds: Normal breath sounds. Abdominal: General: Abdomen is flat. Palpations: Abdomen is soft. Musculoskeletal: Right lower leg: No edema. Left lower le+ Pitting Edema present. Left ankle: Swelling present. Left foot: Swelling present. Comments: Prominent varicose veins on both lower extremities very prominent and tender to touch Neurological: Mental Status: She is alert. Follow Up: No follow-ups on file. Current Outpatient Medications on File Prior to Visit Medication Sig Dispense Refill amLODIPine (Norvasc) 10 MG tablet TAKE 1 TABLET BY MOUTH EVERY DAY 90 tablet 1 cholecalciferol (Vitamin D-3) 25 MCG (1000 UT) tablet Take 1 tablet (25 mcg) by mouth Once per day.90 tablet 3 cyanocobalamin (Vitamin B-12) 500 MCG tablet Take 1 tablet (500 mcg) by mouth Once per day. Take 1 Tablet by Oral route every day 90 tablet 3 lisinopril 30 MG tablet Take 1 tablet (30 mg) by mouth Once per day. 90 tablet 3 sodium chloride 1 g tablet Take 1 tablet (1 g) by mouth every 12 (twelve) hours. 6 tablet 0 No current facility-administered medications on file prior to visit. Problem List Items Addressed This Visit Edema of left lower extremity - Primary DVT is unlikely, I will order Doppler ultrasound refer patient to vascular I will also prescribe for patient compression stockings Relevant Orders Referral to Vascular Surgery Vascular US lower extremity venous duplex bilateral Varicose veins of both legs with edema I will order Doppler ultrasound and refer patient to vascular Relevant Orders Referral to Vascular Surgery Vascular US lower extremity venous duplex bilateral Hyponatremia I will order a BMP to monitor the sodium level Relevant Orders Basic Metabolic Panel Primary hypertension Advised: - Aerobic exercise to reduce BP. Initial goal of 30 min walk 3-5x/week. Increase as tolerated. - low-sodium diet (goal: <2g/day) and heart healthy diet such as DASH to reduce BP and prevent ASCVD. - Home BP monitoring 1-2 x day with goal of <140/90. - Seek immediate medical attention for chest pain, palpitations, SOB, syncope, or sudden changes inmental status. - Do not change or discontinue current prescriptions without first consulting health care provider Encounter for screening mammogram for malignant neoplasm of breast Colon cancer screening declined Other Visit Diagnoses Encounter for immunization Relevant Orders PCV-20 VACCINE 6 wks + (Completed) documented in this encounter Miscellaneous Notes * Assessment & Plan Note - Anamika Apple MD - 12/27/2024 12:37 PM EDT Associated Problem(s): Hyponatremia I will order a BMP to monitor the sodium level * Assessment & Plan Note - Anamika Apple MD - 12/27/2024 12:37 PM EDT Associated Problem(s): Edema of left lower extremity DVT is unlikely, I will order Doppler ultrasound refer patient to vascular I will also prescribe for patient compression stockings * Assessment & Plan Note - Anamika Apple MD - 12/27/2024 12:36 PM EDT Associated Problem(s): Varicose veins of both legs with edema I will order Doppler ultrasound and refer patient to vascular * Assessment & Plan Note - Anamika Apple MD - 12/27/2024 12:36 PM EDT Associated Problem(s): Primary hypertension Advised: - Aerobic exercise to reduce BP. Initial goal of 30 min walk 3-5x/week. Increase as tolerated. - low-sodium diet (goal: <2g/day) and heart healthy diet such as DASH to reduce BP and prevent ASCVD. - Home BP monitoring 1-2 x day with goal of <140/90. - Seek immediate medical attention for chest pain, palpitations, SOB, syncope, or sudden changes inmental status. - Do not change or discontinue current prescriptions without first consulting health care provider documented in this encounter Plan of Treatment Scheduled Orders Name Type Priority Associated Diagnoses Orde r Schedule Basic Metabolic Panel Lab Routine Hyponatremia Expected: 12/27/2024 (Approximate), Expires: 12/27/2025 Scheduled Referrals Name Type Priority Associated Diagnoses Orde r Schedule Referral to Vascular Surgery Outpatient Referral Routine Edema of left lower extremity Varicose veins of both legs with edema Expected: 12/27/2024 (Approximate), Expires: 12/27/2025 documented as of this encounter Visit Diagnoses Diagnosis Edema of left lower extremity- Primary Varicose veins of both legs with edema Hyponatremia Hyposmolality and/or hyponatremia Primary hypertension Unspecified essential hypertension Encounter for screening mammogram for malignant neoplasm of breast Colon cancer screening declined Encounter for immunization documented in this encounter Additional Health Concerns Assessment Noted Time PHQ-9 Depression Total Score: 0 07/20/20 24 1:56 PM EST documented as of this encounter Care Teams Tight Cooper Relationship Specialty Start Date End Date Anamika Phelps MD [address] [place] [address] PCP - General Internal Medicine 06/21/24 documented as of this encounter
--- OUTSIDE RECORDS SUMMARY | 2024-12-27 13:28 | XMS_ITS | Encounter Summary ---
Author Organization [employer] Address [address] [facility] 7t [place] [address] Care Team Providers Care Sorting Machine Attendant Name Role Phone Kat Parkinson Primary Care Provider [phone] Darien Sharp MD Primary Care Provider [phone] Shanel Euceda NP Primary Care Provider [phone] Anamika Phelps MD Primary Care Provide r Reason for Visit * Reason Comments Med Refill Encounter Details Date Type Department Care Team (Late st Contact Info) Description 04/24/2024 Refill [facility] MEDICINE [address] [place], [place] [phone] Kat Parkinson FNP [address] [place], [place] [phone] Social History Tobacco Use Types Packs/Day Years [...] as of this encounter Plan of Treatment Not on file documented as of this encounter Visit Diagnoses Not on filedocumented in this encounter Additional Health Concerns Assessment Noted Time PHQ-9 Depression Total Score: 7 06/14/20 23 10:28 AM EDT documented as of this encounter Care Teams Sorting Machine Attendant Relationship Specialty Start Date End Date Kat Parkinson FNP [address] [place] [address] PCP - General Family Medicine 06/09/22 05/02/24 Darien Sharp MD [address] [place] [address] PCP - General Internal Medicine 05/03/24 05/29/24 Shanel Euceda NP [address] [place] [address] PCP - General Family Medicine 05/30/24 06/20/24 Anamika Phelps MD [address] [place] [address] PCP - General Internal Medicine 06/21/24 documented as of this encounter
--- OUTSIDE RECORDS SUMMARY | 2024-12-27 13:28 | XMS_ITS | Encounter Summary ---
Author Organization [employer] Address [address] [facility] [address] 7[address] [place] [address] Care Team Providers Care Conservation Officer Name Role Phone Anamika Phelps MD Primary Care Provide r Encounter Details Date Type Department Care Team (Latest Contact Info) Description 12/27/2024 Travel Social History Tobacco Use Types Packs/Day Years [...] documented as of this encounter Care Teams Conservation Officer Relationship Specialty Start Date End Date Anamika Phelps MD [address] [place] [address] PCP - General Internal Medicine 06/21/24 documented as of this encounter
--- OUTSIDE RECORDS SUMMARY | 2024-12-27 13:28 | XMS_ITS | Encounter Summary ---
Author Organization [employer] Address [address] [facility] 7t [place] [address] Care Team Providers Care Milieu Manager Name Role Phone Kat Parkinson Primary Care Provider [phone] Darien Sharp MD Primary Care Provider [phone] Shanel Euceda NP Primary Care Provider [phone] Anamika Phelps MD Primary Care Provide r Encounter Details Date Type Department Care Team (Late st Contact Info) Description 08/26/2022 Telephone [facility] MEDICINE [address] [place], [place] [phone] Kat Parkinson FNP [address] [place], [place] [phone] Social History Tobacco Use Types Packs/Day Years [...] PM EST documented as of this encounter Miscellaneous Notes * Telephone Encounter - Marcel Osborn RN - 09/04/2022 10:21 AM EST Pt. Was in clinic for Nurse visit for BP check up. Pt.'s BP at Last appointment was noted to be 160/90. Today vitals are, Left Arm BP 134/68, Right Arm BP 130/70, Pulse - 64. Please review and advise if needed. documented in this encounter Plan of Treatment Not on file documented as of this encounter Visit Diagnoses Not on filedocumented in this encounter Care Teams Milieu Manager Relationship Specialty Start Date End Date Kat Parkinson FNP [address] [place] [address] PCP - General Family Medicine 06/09/22 05/02/24 Darien Sharp MD [address] [place] [address] PCP - General Internal Medicine 05/03/24 05/29/24 Shanel Euceda NP [address] [place] [address] PCP - General Family Medicine 05/30/24 06/20/24 Anamika Phelps MD [address] [place] [address] PCP - General Internal Medicine 06/21/24 documented as of this encounter
--- OUTSIDE RECORDS SUMMARY | 2024-12-27 13:28 | XMS_ITS | Encounter Summary ---
Author Organization [employer] Address [address] [facility] 7t [place] [address] Care Team Providers Care Button Clamper Name Role Phone Kat Parkinson Primary Care Provider [phone] Darien Sharp MD Primary Care Provider [phone] Shanel Euceda NP Primary Care Provider [phone] Anamika Phelps MD Primary Care Provide r Reason for Visit * Reason Onset Date Comments Med Refill 11/13/2022 Encounter Details Date Type Department Care Team (Late st Contact Info) Description 11/13/2022 Telephone [facility] MEDICINE [address] [place], [place] [phone] Kat Parkinson FNP [address] [place], [place] [phone] Med Refill Social History Tobacco Use Types Packs/Day Years Used Date Smoking Tobacco: Never Assessed Comments Unknown Sex and Gender Information Value Date Recorded Sex Assigned at Female 06/29/2022 10:40 AM EDT Legal Sex Female 10:40 AM EDT Gender Identity Female 06/29/2022 10:40 AM EDT Sexual Orientation Straight 06/29/2022 10 :40 AM EDT documented as of this encounter Miscellaneous Notes * Telephone Encounter - Gail De La Rosa LPN - 11/13/2022 10:29 AM EDT Medication was sent to [facility] #[id number] on 11/09/22 Qty: 90 with 1 refill. * Telephone Encounter - Sukumar Paula - 11/13/2022 10:16 AM EDT Tc from pt requesting med refill on lisinopril 20 MG tablet Please sent to [facility]/pharmacy #[id number] - JULIANO SNIDER - [address] [place] [address] documented in this encounter Plan of Treatment Not on file documented as of this encounter Visit Diagnoses Not on filedocumented in this encounter Care Teams Button Clamper Relationship Specialty Start Date End Date Kat Parkinson FNP [address] [place] [address] PCP - General Family Medicine 06/09/22 05/02/24 Lila, MD Darien [address] [place] [address] PCP - General Internal Medicine 05/03/24 05/29/24 Shanel Euceda NP [address] [place] [address] PCP - General Family Medicine 05/30/24 06/20/24 Anamika Phelps MD [address] [place] [address] PCP - General Internal Medicine 06/21/24 documented as of this encounter
[2024-12-27 14:02] LABS: Anion Gap 13 (12-20); Blood Urea Nitrogen 14 mg/dL (9-16); Calcium 9.6 mg/dL (8.4-10.2); Carbon Dioxide 27 mmol/L (22-29); Chloride 98 mmol/L (96-108); Estimated Glomerular Filt Rate > 60; Glucose Random 100 mg/dL (60-115); Potassium 4.2 mmol/L (3.3-5.1); Sodium 134 mmol/L (135-145)
== END 2024-12-27 11:58 | disposition home or self-care (01) ==
LOC: HO.HHCL 11:57
PROVIDERS: Visit Provider Internal Medicine
DX: E87.1 Hypo-osmolality and hyponatremia (principal)
CPT/HCPCS: 36415; 80048

== ENCOUNTER 2025-02-06 13:53 | Outpatient (AMB) | payer MEDICARE, BC, SELFPAY ==
[2025-02-06 14:03] VITALS: BMI 31.3
--- NOTE | 2025-02-06 14:03 | A.OFFVIS_ITS ---
Vital Signs 02/06/25 14:03 Height 5 ft 8 in Weight 206 lb BMI 31.3 Intake Visit Reasons: MANAGED CARE SPECIALIST/PCP referral for LE swelling Intake Note: MANAGED CARE SPECIALIST for swelling and VV. Right LE worse but Left LE swelling is worse. Swelling is worse at the end of the day. Padding Gluer Required: No Accompanied by: Self / Same As Patient Allergies No Known Allergies Allergy (Verified 02/06/25 14:05) HPI HPI MANAGED CARE SPECIALIST/PCP referral for LE swelling: Details: Kwesi, a pleasant 74 yo female patient, is presenting today on a referral from her PCP for concerns of bilateral lower extremity VV. Complaints include pain over varicosities, swelling of lower extremities, cramping, fatigue, and heaviness of the lower extremities. It has been affecting their daily activities including walking, standing, and physical activity. It is noted in bilateral legs. She states that her left leg/foot swells more than the right but the varicosities on the right leg are more painful. She states she has had these varicosities for over 6m, but feels like they are worsening. She is a nonsmoker and is not a diabetic. She does have a family hx of Factor V Leiden; her brother is + for it, but she has tested negative for it. There is a likelihood her mother was positive for it, but was never tested and did have a hx of blood clots. Patient denies any previous venous surgery or injections. Patient denies any history of DVT/ PE. Patient denies any history of phlebitis. Trial of compression includes - elevation with some relief They now present for vascular evaluation regarding their varicose veins. Review of Systems Const Reports as per HPI and Denies weakness ENT Reports Normal hearing present and Denies dizziness Card Reports as per HPI, Denies chest pain, Denies chest pain at rest, Denies chest pain with activity, Denies dyspnea and Denies dyspnea on exertion Resp Reports as per HPI, Denies cough, Denies dyspnea and Denies dyspnea on exertion GI Reports as per HPI, Denies abdominal pain, Denies nausea and Denies vomiting Musc Denies numbness Skin/Breast Reports as per HPI, Denies erythema and Denies wounds Neuro Reports Normal hearing present, Denies dizziness, Denies numbness, Denies Sensory deficit (Neuro) and Denies weakness Psych Reports no additional complaints Endo Reports no additional complaints Physical Exam Vital Signs: BMI result Body Mass Index 31.3 Const General: healthy appearing and no acute distress Orientation/consciousness: patient oriented x3 HEENT Head: Yes normal to inspection Ears: hearing grossly normal bilaterally Mouth: Normal oral and palatal mucosa present Resp Effort & Inspection: normal respiratory effort and able to speak in complete sentences Auscultation: clear to auscultation bilaterally Cardio Jugular venous distension: no JVD Rate: regular rate Rhythm: regular rhythm Heart sounds: S1 normal heart sound present and S2 normal heart sound present Bruits: no abdominal aortic bruits, no carotid bruits, no femoral bruits and no renal bruits Peripheral pulses: Peripheral pulses 2+ throughout GI Inspection: Yes normal to inspection Palpation (GI): No Abdominal aortic bruit present Skin General skin exam: no rashes or lesions noted Wounds: no wounds Hair: normal Neuro General: patient oriented x3 Cranial nerves: Yes Normal hearing present Cognition (Neuro): normal cognition Gait exam (Neuro): Normal gait present Motor exam (neuro): 5/5 motor strength present throughout Sensory Exam: No Sensory deficit (Neuro) Extrem Other: Right lower extremity: several rope-like varicosities, >4cm, noted on the medial thigh laterally to the mid calf, tender to palpation. Discoloration noted around the varicosities. There is also smaller rope-like varicosities in the medial aspect of the medial calf, which she states are more achy. +1 edema noted. Palpable DP pulse. Left lower extremity: rope-like varicosity, >4cm, noted on the lateral thigh and on the lateral aspect of the mid-calf. Tender to palpation. +3 pitting edema noted. Faint DP pulse; difficult to assess due to edema. CEAP: C - 4 E - primary A - superficial P - reflux General: Yes normal to inspection, Yes full ROM, Yes capillary refill normal and Yes normal gait Assessment & Plan Assessment & Plan (1) Varicose veins of both lower extremities with inflammation: Code(s): I83.11 - Varicose veins of right lower extremity with inflammation; I83.12 - Varicose veins of left lower extremity with inflammation Category: Medical Plan: Kwesi is presenting today on a referral from her PCP for concerns of VV with pain and inflammation. In short, the patient has evidence of venous insufficiency. I have discussed the pathophysiology with the patient. In addition I have provided informational material regarding venous disease to the patient. We have discussed conservative measures including compression, elevation, and exercise. She has worn compression socks in the past, we discussed to continuing using them. I have taken the liberty of ordering venous insufficiency testing with the patient. They will follow up with me after testing. The patient had an opportunity to ask questions regarding the treatment plan. All questions were answered. Imaging studies, laboratory studies and physical exam results were discussed and reviewed in detail. No major barriers to understanding were identified. The patient expressed understanding and agreement with the above treatment plan. The patient is aware they should contac t our office by phone for worsening of the current condition or the appearance of new symptoms. Thank you for allowing me to participate in the vascular care of this patient. If you have any questions or concerns regarding the treatment for the above condition please do not hesitate to contact me. The office telephone contact is [phone]. This note is constructed using voice recognition software. While every effort has been made to ensure accuracy, refrigeration specialist errors may have been included. Thank you for allowing me to participate in the care of your patient. Yours sincerely, BILLIE Oconnor Orders: Orders US venous duplex LE BI 1 Week I83.11 - Varicose veins of right lower extremity with inflammation, I83.12 - Varicose veins of left lower extremity with inflammation Coding Level of Care Code New Pt Level 4 (33686) Diagnoses Varicose veins of both lower extremities with inflammation I83.11; I83.12
== END 2025-02-06 14:42 | disposition home or self-care (01) ==
LOC: HO.HVS 13:53
PROVIDERS: PCP Nurse Practitioner Family; Visit Provider Physician Assistant Surgical
DX: I83.11 Varicose veins of right lower extremity with inflammation (principal); I83.12 Varicose veins of left lower extremity with inflammation
CPT/HCPCS: 99204

== ENCOUNTER → 2025-02-06 13:53 | Outpatient (BNVA) | payer MEDICARE, BC, SELFPAY | PROVIDERS: PCP Nurse Practitioner Family; Visit Provider Physician Assistant Surgical | DX: I83.11 Varicose veins of right lower extremity with inflammation (principal); I83.12 Varicose veins of left lower extremity with inflammation | CPT/HCPCS: 99202 ==

== ENCOUNTER 2025-04-12 08:31 | Outpatient (REF) | payer MEDICARE, BC, SELFPAY ==
--- NOTE | ~2025-04-12 | US_ITS ---
EXAMINATION: US LOWER EXTREMITY VENOUS (REFLUX EXAM), BILATERAL CLINICAL INFORMATION: Varices. COMPARISON: None. TECHNIQUE: Color flow triplex imaging and compression Doppler was performed to evaluate both the deep and the superficial systems bilaterally. To evaluate the superficial system, the examination was performed in the upright position. Color-flow Doppler ultrasound and compression ultrasound were utilized. In addition, maneuvers were utilized to demonstrate reflux. FINDINGS: 1. DEEP VENOUS ULTRASOUND OF THE RIGHT LOWER EXTREMITY: Common Femoral Vein: Compressible, normal respiratory variation and augmented flow. Femoral Vein: Compressible, normal color flow and augmentation. Popliteal Vein: Compressible, normal augmentation. Deep Reflux: There is no evidence of reflux in the deep system in either the common femoral vein, superficial femoral or the popliteal vein. There is no evidence of a Veloz's cyst. 2. SUPERFICIAL ULTRASOUND WITH DOPPLER OF RIGHT LOWER EXTREMITY: GREAT SAPHENOUS VEIN: Saphenofemoral Junction: 0.8 cm; Reflux: 0 ms Proximal Thigh: 0.5 cm; Reflux: 0 ms Mid Thigh: 0.3 cm; Reflux: 2240 ms Distal Thigh: 0.3 cm; Reflux: 2668 ms At Knee: 0.3 cm; Reflux: 1100 ms Proximal Calf: 0.7 cm; Reflux: 1396 ms Mid Calf: 0.2 cm; Reflux: 1024 ms Distal Calf: 0.2 cm; Reflux: 0 ms DUPLICATED MEDIAL GREAT SAPHENOUS VEIN: Diameter: None imaged Reflux: NA DUPLICATED LATERAL GREAT SAPHENOUS VEIN: Diameter: 0.5-0.6 cm. Reflux: NA SMALL SAPHENOUS VEIN: Saphenopopliteal Junction: 0.2 cm; Reflux: 0 ms Proximal: 0.2 cm; Reflux: 0 ms Distal: 0.3 cm; Reflux: 0 ms VEIN OF GIACOMINI: Size: NA Reflux: NA PERFORATORS: Location: Proximal and mid calf. Size: 0.2-0.3 cm. Reflux: NA VARICOSITIES: Location: Small saphenous vein distal segment. At the knee and proximal calf. Size: 0.4-0.5 cm. Reflux: 1740 ms at the knee and 1968 ms in the proximal calf. 3. DEEP VENOUS ULTRASOUND OF THE LEFT LOWER EXTREMITY: Common Femoral Vein: Compressible, normal respiratory variation and augmented flow. Femoral Vein: Compressible, normal color flow and augmentation. Popliteal Vein: Compressible, normal augmentation. Deep Reflux: There is no evidence of reflux in the deep system in either the common femoral vein, superficial femoral or the popliteal vein. There is no evidence of a Veloz's cyst. 4. SUPERFICIAL ULTRASOUND WITH DOPPLER OF LEFT LOWER EXTREMITY: GREAT SAPHENOUS VEIN: Saphenofemoral Junction: 1.0 cm; Reflux: 2040 ms Proximal Thigh: 0.5 cm; Reflux: 0 ms Mid Thigh: 0.5 cm; Reflux: 0 ms Distal Thigh: 0.4 cm; Reflux: 0 ms At Knee: 0.2 cm; Reflux: 0 ms Proximal Calf: 0.2 cm; Reflux: 0 ms Mid Calf: 0.4 cm; Reflux: 0 ms Distal Calf: 0.3 cm; Reflux: 0 ms DUPLICATED MEDIAL GREAT SAPHENOUS VEIN: Diameter: None imaged Reflux: NA DUPLICATED LATERAL GREAT SAPHENOUS VEIN: Diameter: None imaged. Reflux: NA SMALL SAPHENOUS VEIN: Saphenopopliteal Junction: 0.2 cm; Reflux: 0 ms Proximal: 0.2 cm; Reflux: 0 ms Distal: 0.2 cm; Reflux: 0 ms VEIN OF GIACOMINI: Size: NA Reflux: NA PERFORATORS: Location: Mid thigh. Proximal and mid calf. Size: 0.2-0.5 cm. Reflux: NA VARICOSITIES: Location: None Imaged Size: NA Reflux: NA US/US venous duplex LE BI IMPRESSION: Right: Venous insufficiency, great saphenous vein from the mid thigh to the mid calf. Varices with reflux at the knee and proximal calf Left: Venous insufficiency, great saphenous vein at the superficial femoral vein junction. Perforators without reflux. Electronically signed by: César Negron MD 04/12/2025 09:50 AM EDT
--- OUTSIDE RECORDS SUMMARY | 2025-04-12 08:41 | XMS_ITS | Encounter Summary ---
Author Organization [employer] Address [address] [facility] 7t [place] [address] Care Team Providers Care Superior Court Judge Name Role Phone Kat Parkinson Primary Care Provider [phone] Lila, Darien MAYER Primary Care Provider [phone] Shanel Euceda NP Primary Care Provider [phone] Anamika Phelps MD Primary Care Provide r Encounter Details Date Type Department Care Team (Late st Contact Info) Description 08/07/2022 Orders Only [facility] MEDICINE [address] [place] [address] Kat Parkinson FNP [address] [place], [place] [phone] Primary hypertension (Primary Dx) Social History Tobacco [...] hypertension documented in this encounter Care Teams Superior Court Judge Relationship Specialty Start Date End Date Kat Parkinson FNP [address] [place], [place] [phone] PCP - General Family Medicine 06/09/22 05/02/24 Darien Sharp MD [address] [place], [place] [phone] PCP - General Internal Medicine 05/03/24 05/29/24 Shanel Euceda NP [address] [place], [place] [phone] PCP - General Family Medicine 05/30/24 06/20/24 Anamika Phelps MD [address] [place] [address] [id number] PCP - General Internal Medicine 06/21/24 documented as of this encounter
--- OUTSIDE RECORDS SUMMARY | 2025-04-12 08:41 | XMS_ITS | Encounter Summary ---
Author Organization [facility] Address [address] [place] [address] Phone Care Team Providers Care Computer Meteorologist Name Role Phone Elisabeth Pizarro MD Primary Care Provider [phone] Janeth Negron MD Primary Care Provider [phone] Encounter Details Date Type Department Care Team ([facility] st Contact Info) Description 12/30/2017 Ancillary Orders Virtual Department [address] [place] [address] Elisabeth Pizarro MD [address] [facility], [address] [place] [address] [email or web address] Breast screening Social History Tobacco Use Types Packs/Day Years Used Date Smoking Tobacco: Never Assessed Comments Unknown Sex and Gender Information Value Date Recorded Sex Assigned at Not on file Legal Sex Female 9:59 PM EDT Gender Identity Not on file Sexual Orientation Not on file documented as of this encounter Plan of Treatment Not on file documented as of this encounter Results * BI MAMMOGRAM SCREENING WITH TOMOSYNTHESIS WITH CAD (BILATERAL) (02/07/2018 7:45 AM EDT) Anatomical Region Laterality Modality Breast Left, Breast Right, Breast Bilateral Bila teral Mammography 02/07/2018 8:37 AM EDT Impressions 02/07/2018 8:43 AM EDT No findings suspicious for malignancy. In the absence of a worrisome palpable abnormality, annual screening mammography is recommended. BI-RADS CATEGORY: 2 - Benign finding. DENSITY: The breast tissue is heterogeneously dense, an appearance which lowers the sensitivity of mammography. POS [id number] Narrative 02/07/2018 8:43 AM EDT COMPARISON: 03/13/2009 through 01/12/2017. Bilateral 3-D tomosynthesis with 2-D reconstructions in the CC and MLO projection of each breast was obtained. Computer-aided detection system also utilized. No new mass, asymmetry, architectural distortion or suspicious calcifications have become apparent on either side. Chronic small circumscribed mass retroareolar left breast and a few calcifications in the right breast have not changed appreciably. Procedure Note Rasheed Quevedo MD - 02/07/2018 COMPARISON: 03/13/2009 through 01/12/2017. Bilateral 3-D tomosynthesis with 2-D reconstructions in the CC and MLOprojection of each breast was obtained. Computer-aided detection systemalso utilized. No new mass, asymmetry, architectural distortion or suspiciouscalcifications have become apparent on either side. Chronic small circumscribed mass retroareolar left breast and a fewcalcifications in the right breast have not changed appreciably. IMPRESSION: No findings suspicious for malignancy. In the absence of a worrisomepalpable abnormality, annual screening mammography is recommended. BI-RADS CATEGORY: 2 - Benign finding. DENSITY: The breast tissue is heterogeneously dense, an appearance whichlowers the sensitivity of mammography. POS CDHMAM2 Elisabeth Pizarro MD IMG MG EXAMS Final Result documented in this encounter Visit Diagnoses Diagnosis Breast screening Breast screening, unspecified Breast screening Breast screening, unspecified documented in this encounter Care Teams Computer Meteorologist Relationship Specialty Start Date End Date Elisabeth Pizarro MD [email or web address] PCP - General 06/14/17 04/20/19 Janeth Negron MD [address] [place] [address] [email or web address] PCP - General Family Medicine 04/21/19 documented as of this encounter Additional Source Comments The information contained in this document represents components of the legal health record. It is not the complete legal health record.[facility]
--- OUTSIDE RECORDS SUMMARY | 2025-04-12 08:41 | XMS_ITS | Patient Health Record ---
Author Organization [facility] Address [address] [place] [address] Care Team Providers Care Ripsaw Operator Name Role Phone Pam Pizarro MD Primary Care Provider Clarence Babcock [phone] Allergies Allergen (clinical drug ingredient) Drug/Non Drug Allergy documented on EMR Reaction Allergy Type Onset Date Status food/enviromental/ch em ical (uncoded) Unknown Allergy Active Reason For Referral No Information Medications Medication SIG (Take, Route, Fr equency, Duration) Notes Start Date End Date Status MoviPrep 100 GM as directed Orally a s directed for 1 dose 07/13/2014 Active Lisinopril 5 MG 1 tablet Orally Once a day Active Problems Problem Type SNOMED Code ICD Code Onset Dates Problem Status W/U Status Risk Notes Problem Pre-surgery evaluation (538902304) Other specified pre-operative examination (V72.83) Active confirmed Problem Colon cancer screening (V76.51) Active confirmed Plan Of Treatment Future Test Test Name Order Date COLONOSCOPY 07/10/2014 Insurance Providers Payer Name Payer Address Payer Phone Subscriber Number Group Number Insured Name Patient Relationship to Insured Coverage Start Date Coverage End Date [facility] [employer] PROF[employer] CLAIM[employer] [address] [place] [address] [phone] [id number] FELICIA KNOWLES Self - patient is the insured Medical (General) History Medical History History ICD Code HTN Mild Hepatitis when she had [place] in johny ege-resolved Fibromyalgia/Chronic Fatigue Syndrome Gallstones--asymptomatic-seen on an [place]/S Neg. Hemoccults approx in 2008 [address],DM,CVA,Lung disease,renal dise ase Surgical History Surgery Date(Month/Year) deviated septum repair benign breast tumor removed 1974 D & C 1986 ovarian cyst removed-benign 2000
== END 2025-04-12 08:32 | disposition home or self-care (01) ==
LOC: HO.US 08:31
PROVIDERS: PCP Internal Medicine; Visit Provider Physician Assistant Surgical
DX: I83.11 Varicose veins of right lower extremity with inflammation (principal); I83.12 Varicose veins of left lower extremity with inflammation
CPT/HCPCS: 93970

== ENCOUNTER → 2025-04-12 08:33 | Outpatient (BNV) | payer MEDICARE, BC, SELFPAY | PROVIDERS: PCP Internal Medicine; Visit Provider Radiology Diagnostic Radiology | DX: I83.11 Varicose veins of right lower extremity with inflammation (principal); I83.12 Varicose veins of left lower extremity with inflammation | CPT/HCPCS: 93970 ==

== ENCOUNTER 2025-05-29 09:05 | Outpatient (AMB) | payer MEDICARE, BC, SELFPAY ==
[2025-05-29 09:17] VITALS: BMI 31.3
--- NOTE | 2025-05-29 09:17 | MHC.OFFVIS ---
Vital Signs 05/29/25 09:17 Height 5 ft 8 in Weight 206 lb BMI 31.3 Intake Visit Reasons: follow up s/p 04/12/25 Intake Note: follow up 04/12/25 . for LE swelling Right LE swelling is worse than the Left LE. Pt states that VV are worse on the Right LE. Transportation Manager Required: No Accompanied by: Self / Same As Patient Allergies No Known Allergies Allergy (Verified 05/29/25 09:21) HPI HPI follow up s/p 04/12/25: Details: The patient is a 74-year-old female presenting with venous insufficiency. She reports significant swelling in her left foot, which has now shifted to the sides of the foot, accompanied by aches and pains requiring elevation and ice application several times a day. Previously, she experienced an episode of swelling and redness that resolved but prompted her to seek further evaluation to prevent recurrence. The patient has a history of fibromyalgia for approximately 40 years, which increases her sensitivity to pain. She expresses concern about pain management during procedures, preferring anesthetic over topical numbing agents due to her heightened pain sensitivity. Review of Systems Const Reports as per HPI ENT Reports no additional complaints Card Denies chest pain, Denies chest pain at rest and Denies chest pain with activity Resp Denies chest congestion and Denies cough GI Reports no additional complaints Musc Details: pain over varicosities, aching of lower extremities, swelling, cramping, heaviness and tiredness, itching Denies abnormal gait Skin/Breast Reports pruritus and Denies wounds Neuro Reports no additional complaints and Denies abnormal gait Psych Denies no additional complaints Physical Exam Vital Signs: BMI result Body Mass Index 31.3 Const General: cooperative, healthy appearing and comfortable Orientation/consciousness: oriented to person, oriented to place and oriented to time Neck Carotids: no bruits Chest Chest palpation & inspection: normal inspection of the chest and normal palpation of entire chest wall Resp Effort & Inspection: normal respiratory effort and able to speak in complete sentences Cardio Rate: regular rate Heart sounds: S1 normal heart sound present and S2 normal heart sound present Peripheral pulses: Peripheral pulses 2+ throughout GI Inspection: Yes normal to inspection Skin Other: +2 edema, large rope-like varicosities greater than 4 mm CEAP Classification C4 - skin color changes Ep - Etiology Primary As - superficial veins P - reflux General skin exam: dry skin Neuro General: oriented to person, oriented to place and oriented to time Extrem Right lower extremity: full ROM, normal capillary refill and edema Left lower extremity: full ROM, normal capillary refill and edema Psych Mental Status: mental status grossly normal Results Reviewed Results Reviewed: Brief summary of venous insufficiency testing is as follows: right great saphenous vein: Positive right small saphenous vein: negative right accessory vein: none present left great saphenous vein: negative left small saphenous vein: negative left accessory vein: none present Please note there is no evidence of any venous aneurysms or significant tortuosity Assessment & Plan Assessment & Plan (1) Varicose veins of right lower extremity with inflammation: Code(s): I83.11 - Varicose veins of right lower extremity with inflammation Category: Medical Plan: This patient has varicose veins with inflammation. They continue to be a source of discomfort for the patient. The patient has tried conservative treatment with compression, leg elevation and exercise program for over 3 months time. They have been compliant with all treatment. This has provided minimal relief for the patient. I do not anticipate this course of treatment will alter the underlying etiology. The patient has been scheduled for lower extremity venous treatment inclusive of --- right great saphenous vein Cyanoacralate ablation. Risks, benefits, and complications of this procedure has been discussed in detail with the patient including but not limited to bleeding, infection, and the development of a DVT. The patient has demonstrated a clear understanding and has consented. We will schedule the patient as soon as possible. Thank you for allowing us to participate in this patient's care. If there are any questions or concerns please do not hesitate to contact us. Coding Level of Care Code Est Pt Level 4 (59239) Diagnoses Varicose veins of right lower extremity with inflammation I83.11
--- OUTSIDE RECORDS SUMMARY | 2025-05-29 09:50 | XMS_ITS | Encounter Summary ---
Author Organization [facility] Address [address] [place] [address] Phone Care Team Providers Care Medical Liaison Name Role Phone Janeth Negron MD Primary Care Provider [phone] Encounter Details Date Type Department Care Team (Late st Contact Info) Description 05/07/2020 Procedure Pass [facility], [address] [address] Social History Tobacco Use Types Packs/Day Years Used Date Smoking Tobacco: Never Assessed Comments No Sex and Gender Information Value Date Recorded Sex Assigned at Not on file Legal Sex Female 9:59 PM EDT Gender Identity Not on file Sexual Orientation Not on file documented as of this encounter Plan of Treatment Not on file documented as of this encounter Visit Diagnoses Not on filedocumented in this encounter Care Teams Medical Liaison Relationship Specialty Start Date End Date Janeth Negron MD [address] [place] [address] [email or web address] PCP - General Family Medicine 04/21/19 documented as of this encounter Additional Source Comments The information contained in this document represents components of the legal health record. It is not the complete legal health record.[facility]
--- OUTSIDE RECORDS SUMMARY | 2025-05-29 09:50 | XMS_ITS | Patient Health Record ---
Author Organization [facility] Address [address] [place] [address] Care Team Providers Care Field Assessor Name Role Phone Pam Pizarro MD Primary Care Provider Clarence Babcock [phone] Allergies Allergen (clinical drug ingredient) Drug/Non Drug [...] W/U Status Risk Notes Problem Pre-surgery evaluation (108280048) Other specified pre-operative examination (V72.83) Active confirmed Problem Colon cancer screening (106781525) Colon cancer screening (V76.51) Active confirmed Plan Of Treatment Future Test Test Name Order Date COLONOSCOPY 07/10/2014 Insurance Providers Payer Name Payer Address Payer Phone Subscriber Number Group Number Insured Name Patient Relationship to Insured Coverage Start Date Coverage End Date [facility] [employer] PROF[employer] [address] [place] [address] [id number] EVELINE KNOWLESLOU Self - patient is the insured Medical (General) History Medical History History ICD Code HTN Mild Hepatitis when she had [place] in j[place] ege-resolved Fibromyalgia/Chronic Fatigue Syndrome Gallstones--asymptomatic-seen on an [place] Neg. Hemoccults approx in 2008 or 2009 Denies NE,DM,CVA,Lung disease,renal dise ase Surgical History Surgery Date(Month/Year) deviated septum repair benign breast tumor removed 1974 D & C 1986 ovarian cyst removed-benign 2000
--- OUTSIDE RECORDS SUMMARY | 2025-05-29 09:50 | XMS_ITS | Clinical Summary ---
Author Organization [facility] Address [address] [place] [address] Phone Care Team Providers Care Railroad Signal Operator Name Role Phone Janeth Negron MD Primary Care Provider [phone] Family History Medical History Relation Comments Breast cancer Paternal Grandmother Relation Status Comments Paternal Grandmother Social History Tobacco Use Types Packs/Day Years Used Date Smoking Tobacco: Never Assessed Education Answer Date Recorded Are you interested in more education? Not on scout e 12/25/2022 Are you concerned about learning? Not on file 12/25/2022 No 12/25/2022 No 12/25/2022 Digital Access Answer Date Recorded No 01/25/2023 No 01/25/2023 Reliable internet access at home? Not on file 01/25/2023 Device with a working camera? Not on file Comments No Sex and Gender Information Value Date Recorded Sex Assigned at Not on file Legal Sex Female 9:59 PM EDT Gender Identity Not on file Sexual Orientation Not on file Plan of Treatment Health Maintenance Due Date Last Done Comments Adult Td,Tdap Booster 1952 LIPID PANEL 1952 DEPRESSION SCREENING 1964 SMOKING Hx and SMOKELESS TOBACCO SCREENING 1965 HEPATITIS C SCREENING 1970 COLOGUARD 1997 COLONOSCOPY 1997 COLORECTAL CANCER SCREENING 1997 FIT TEST 1997 FOBT 1997 SIGMOIDOSCOPY 1997 VIRTUAL COLONOSCOPY 1997 PNEUMOCOCCAL VACCINES (50+ years) (1 of 1 - PCV) 2002 ZOSTER VACCINES (1 of 2) 2002 MAMMOGRAM 07/09/2022 07/09/2020, 07/06/2019, 02/07/2018 COVID-19 VACCINE ( - 2023-2 5 season) 2024 01/14/2022, 07/17/2021, 06/19/2021 RSV VACCINE (1 - 1-dose 75+ series) 2027 OSTEOPOROSIS SCREENING INITI AL (ONE-TIME) Completed 07/06/2019 HEPATITIS A VACCINES Aged Out No long er eligible based on patient's age to complete this topic HIB VACCINES Aged Out No longer eligi ble based on patient's age to complete this topic MENINGOCOCCAL VACCINES (ACWY) Aged Out No longer eligible based on patient's age to complete this topic MENINGOCOCCAL VACCINES (B) Aged Out N o longer eligible based on patient's age to complete this topic Medical Devices Not on file Procedures Procedure Name Priority Date/Time Associated Diagnosis Comments BI MAMMOGRAM SCREENING WITH TOMOSYNTHESIS WITH CAD (BILATERAL) Routine 07/09/2020 8:33 AM EST Breast screening BD DXA AXIAL (SPINE) WITH HIP Routine 07/06/2019 8:10 AM EST Screening for osteoporosis from Last 3 Months or Most Recently Relevant to Health Maintenance Results * BI MAMMOGRAM SCREENING WITH TOMOSYNTHESIS WITH CAD (BILATERAL) (07/09/2020 8:33 AM EST) Anatomical Region Laterality Modality Breast Left, Breast Right, Breast Bilateral Bila teral Mammography 07/09/2020 8:47 AM EST Impressions 07/09/2020 8:49 AM EST No mammographic evidence of malignancy. Recommend routine annual surveillance. BI-RADS CATEGORY: 2 - Benign finding. DENSITY: The breast tissue is heterogeneously dense, which could obscure a lesion on mammography. Narrative 07/09/2020 8:49 AM EST 69-year-old female with no current breast symptoms. Comparison made to previous on 07/06/2019 and as far back as 01/09/2013. Interpretation made in conjunction with computer-aided detection and tomosynthesis. The breasts are heterogeneously dense, which may obscure small masses. Chronic bilateral benign scattered calcifications and right breast mass There are no suspicious masses, areas of architectural distortion, or suspicious clusters of microcalcifications. Procedure Note Jefferson Brannon MD - 07/09/2020 69-year-old female with no current breast symptoms. Comparison made toprevious on 07/06/2019 and as far back as 01/09/2013. Interpretation madein conjunction with computer-aided detection and tomosynthesis. The breasts are heterogeneously dense, which may obscure small masses.Chronic bilateral benign scattered calcifications and right breast mass There are no suspicious masses, areas of architectural distortion, orsuspicious clusters of microcalcifications. IMPRESSION: No mammographic evidence of malignancy. Recommend routine annualsurveillance. BI-RADS CATEGORY: 2 - Benign finding. DENSITY: The breast tissue is heterogeneously dense, which could obscurea lesion on mammography. us Janeth Negron MD IMG MG EXAMS Final Res ult * BD DXA AXIAL (SPINE) WITH HIP (07/06/2019 8:10 AM EST) Anatomical Region Laterality Modality Bone Density Bone Density 07/06/2019 8:19 AM EST Impressions 07/06/2019 8:21 AM EST Normal bone density. POS - [id number] Narrative 07/06/2019 8:21 AM EST COMPARISON: None. BONE DENSITY FINDINGS: History: This is a 68-year-old postmenopausal female. Evaluation of the lumbar spine and hips was performed and felt to be technically adequate. Total bone mineral density in the L1-L4 vertebral bodies was calculated at 0.998 gm/cm2 with a T-score of -0.4 falling within the WHO classification of normal. Z-score of 1.5. Total bone mineral density in the right hip was calculated at 0.819 gm/cm2 with a T-score of -1.0 falling within the WHO classification of normal. Z-score of 0.3. Total bone mineral density in the left hip was calculated at 0.878 gm/cm2 with a T-score of -0.5 falling within the WHO classification of normal. Z-score of 0.8. Procedure Note Jefferson Brannon MD - 07/06/2019 COMPARISON: None. BONE DENSITY FINDINGS: History: This is a 68-year-old postmenopausal female. Evaluation of the lumbar spine and hips was performed and felt to betechnically adequate. Total bone mineral density in the L1-L4 vertebral bodies was calculated at0.998 gm/cm2 with a T-score of -0.4 falling within the WHO classificationof normal. Z- score of 1.5. Total bone mineral density in the right hip was calculated at 0.819 gm/je6lsqn a T-score of -1.0 falling within the WHO classification of normal.Z-score of 0.3. Total bone mineral density in the left hip was calculated at 0.878 gm/dl1awfw a T-score of -0.5 falling within the WHO classification of normal.Z-score of 0.8. IMPRESSION: Normal bone density. POS - [id number] Janeth Negron MD IMG BD BONE DENSITY DEXA Final Result from Last 3 Months or Most Recently Relevant to Health Maintenance Insurance [employer] MEDEX SUPPLEMENT MEDICARE PART A & B [employer] MEDEX SUPPLEMENT MEDICARE PART A & B [employer] MEDEX SUPPLEMENT MEDICARE PART A & B [employer] MEDEX SUPPLEMENT MEDICARE PART A & B [employer] MEDEX SUPPLEMENT MEDICARE PART A & B [facility] MEDEX SUPPLEMENT MEDICARE PART A & B [address] MEDEX SUPPLEMENT MEDICARE PART A & B [address] [place] [phone] [address] [employer] MEDEX SUPPLEMENT MEDICARE PART A & B [employer] MEDEX SUPPLEMENT MEDICARE PART A & B Care Teams Railroad Signal Operator Relationship Specialty Start Date End Date Janeth Negron MD [address] [place] [id number] [email or web address] PCP - General Family Medicine 04/21/19 Additional Source Comments The information contained in this document represents components of the legal health record. It is not the complete legal health record.[facility]
--- OUTSIDE RECORDS SUMMARY | 2025-05-29 09:50 | XMS_ITS | Encounter Summary ---
Author Organization [employer] Address [address] [facility] 7t [place] [address] Care Team Providers Care Fretted Instrument Inspector Name Role Phone Kat Parkinson Primary Care Provider [phone] Name, Darien MAYER Primary Care Provider [phone] Shanel Euceda NP Primary Care Provider [phone] Anamika Phelps MD Primary Care Provide r Encounter Details Date Type Department Care Team (Late st Contact Info) Description 08/26/2022 Telephone [facility] [address] [place] [address] Kat Parkinson FNP [address] [place], [place] [phone] Social History Tobacco Use Types Packs/Day Years [...] on filedocumented in this encounter Care Teams Fretted Instrument Inspector Relationship Specialty Start Date End Date Kat Parkinson FNP [address] [place] [address] PCP - General Family Medicine 06/09/22 05/02/24 Darien Sharp MD [address] [place] [address] PCP - General Internal Medicine 05/03/24 05/29/24 Shanel Euceda NP [address] [place] [address] PCP - General Family Medicine 05/30/24 06/20/24 Anamika Phelps MD [address] [place] [address] PCP - General Internal Medicine 06/21/24 documented as of this encounter
--- OUTSIDE RECORDS SUMMARY | 2025-05-29 09:50 | XMS_ITS | Encounter Summary ---
Author Organization [employer] Address [address] [facility] 7t [place] [address] Care Team Providers Care Patternmaker Wood Name Role Phone Kat Parkinson Primary Care Provider [phone] Lila, Darien MAYER Primary Care Provider [phone] Shanel Euceda NP Primary Care Provider [phone] Anamika Phelps MD Primary Care Provide r Reason for Visit * Reason Comments Med Refill Encounter Details Date Type Department Care Team (Late st Contact Info) Description 04/24/2024 Refill [facility] MEDICINE [address] [place], [place] [phone] Kat Parkinson FNP [address] [place], [place] [phone] Social History Tobacco Use Types Packs/Day Years [...] documented as of this encounter Care Teams Patternmaker Wood Relationship Specialty Start Date End Date Kat Parkinson FNP [address] [place] [address] PCP - General Family Medicine 06/09/22 05/02/24 Darien Sharp MD [address] [place] [address] PCP - General Internal Medicine 05/03/24 05/29/24 Shanel Euceda NP [address] [place] [address] PCP - General Family Medicine 05/30/24 06/20/24 Anamika Phelps MD [address] [place], [place] PCP - General Internal Medicine 06/21/24 documented as of this encounter
--- OUTSIDE RECORDS SUMMARY | 2025-05-29 09:50 | XMS_ITS | Encounter Summary ---
Author Organization [employer] Address [address] [facility] 7t [place] [address] Care Team Providers Care Supervisor Hot Strip Mill Name Role Phone Kat Parkinson Primary Care Provider [phone] Name, Darien MAYER Primary Care Provider [phone] Shanel Euceda NP Primary Care Provider [phone] Anamika Phelps MD Primary Care Provide r Reason for Referral * Imaging (Routine) - Closed Specialty Diagnoses / Procedures Referred By Rita botello Referred To Contact Radiology Diagnoses Abnormal finding on mammography Procedures BI Mammogram Diagnostic Tomosynthesis Bilateral Kat Parkinson FNP [address] [place] [address] Phone: tel: fax: [address] Phone: tel: fax: Referral ID Status Reason Start Date Expiration Date Visits Re quested Visits Authorized [id number] Closed 11/02/2023 11/01/2024 1 1 Encounter Details Date Type Department Care Team (Late st Contact Info) Description 11/02/2023 Orders Only [facility] MED & PEDS [address] [place] [address] Kat Parkinson FNP [address] [place] [address] Abnormal finding on mammography (Primary Dx) Social [...] documented as of this encounter Care Teams Supervisor [employer] Strip Mill Relationship Specialty Start Date End Date Kat Parkinson FNP [address] [place] [address] PCP - General Family Medicine 06/09/22 05/02/24 Darien Sharp MD [address] [place] [address] PCP - General Internal Medicine 05/03/24 05/29/24 Shanel Euceda NP [address] [place], [place] [phone] PCP - General Family Medicine 05/30/24 06/20/24 Anamika Phelps MD [address] [place] [address] PCP - General Internal Medicine 06/21/24 documented as of this encounter
--- OUTSIDE RECORDS SUMMARY | 2025-05-29 09:50 | XMS_ITS | Encounter Summary ---
Author Organization [facility] Address [address] [place] [address] Phone Care Team Providers Care Knurling Machine Operator Name Role Phone Elisabeth Pizarro MD Primary Care Provider [phone] Janeth Negron MD Primary Care Provider [phone] Encounter Details Date Type Department Care Team ([facility] st Contact Info) Description 12/30/2017 Ancillary Orders Virtual Department [address] [place] [address] Elisabeth Pizarro MD [address] [facility], [address] [place] [address] [email or web address] Breast screening Social History Tobacco Use Types [...] unspecified documented in this encounter Care Teams Knurling Machine Operator Relationship Specialty Start Date End Date Elisabeth Pizarro MD [email or web address] PCP - General 06/14/17 04/20/19 Janeth Negron MD [address] [place] [address] [email or web address] PCP - General Family Medicine 04/21/19 documented as of this encounter Additional Source Comments The information contained in this document represents components of the legal health record. It is not the complete legal health record.[facility]
--- OUTSIDE RECORDS SUMMARY | 2025-05-29 09:50 | XMS_ITS | Clinical Summary ---
Author Organization [employer] Address [address] [facility] 7t [place] [address] Care Team Providers Care Food And Beverage Attendant Name Role Phone Anamika Phelps MD Primary Care Provide r Allergies Active Allergy Reactions Criticality Noted Date Comments Cefuroxime Nausea 09/03/2023 Modified Tree Tyrosine Adsorbate Medications lisinopril 30 MG tabletIndication s:Hypertension, unspecified type Take 1 tablet (30 mg) by mouth Once per day. 90 tablet 3 05/30/2024 5 Active sodium chloride 1 g tabletIndication s:Hyponatremia Take 1 tablet (1 g) by mouth every 12 (twelve) hours. 6 tablet 08/04/2024 5 Active amLODIPine (Norvasc) 10 MG tabletIndication s:Hyponatremia TAKE 1 TABLET BY MOUTH EVERY DAY 90 tablet 1 04/16/2025 Active Active Problems Problem Noted Date Diagnosed [...] Encounters Date Type Department Care Team Description 04/15/2025 Refill [facility] [address] [place] [address] Anamika Phelps MD Hyponatremia 04/06/2025 Telephone [facility] [address] [place] [address] Anamika Phelps MD Care Coordination 03/30/2025 Orders Only [facility] [address] [place] [address] Anamika Phelps MD 03/13/2025 Telephone [facility] [address] [place] [address] Anamika Phelps MD OCT RECALL from Last 3 Months Immunizations Immunization Administration Dates Next Due Pneumococcal Conjugate PCV [...] 64 12/27/2024 10:46 AM EDT Temperature 36.4 C (97.6 F) 12/27/2024 10:46 AM EDT Respiratory Rate 18 12/27/2024 10:46 AM EDT [...] 1950 Zoster Vaccines (1 of 2) 2002 Colonoscopy 08/20/2024 08/20/2014 Colorectal Cancer Screening 08/20/2024 COVID-19 Vaccine ( season) 2025 Influenza Vaccine (#1) 2025 Alcohol/Substance Use Screening 07/20/2025 07/20/2024 Depression Screening [...] patient's age to complete this topic Meningococcal B Vaccine Aged Out No l onger eligible based on patient's age to complete [...] Procedure Name Priority Date/Time Associated Diagnosis Comments [facility] US LOWER EXTREMITY VENOUS DUPLEX BILATERAL Routine 04/12/2025 8:49 AM EDT HEPATITIS C AB W/REFL TO HCV RNA, [...] Recently Relevant to Health Maintenance Results * [facility] US Lower Extremity Venous Duplex Bilateral (04/12/2025 8:49 AM EDT) 04/12/2025 8:49 AM EDT [facility] IMAG[facility] - 04/12/2025 9:53 AM EDT [address] [address] Ultrasound Report Signed Patient: Dayan Epperson MR#: [id number] 209 : 1950 Acct:[id number] Age/Sex: 74 / F ADM Date: 04/12/25 Loc: .US Attending Dr: Marci Baer PA-C Ordering Physician: Marci Baer PA-C Date of Service: 04/12/25 Procedure(s): US venous duplex LE BI Accession Number(s): [id number] cc: Anamika Phelps MD; Marci Baer PA-C EXAMINATION: US LOWER EXTREMITY VENOUS (REFLUX EXAM), BILATERAL CLINICAL INFORMATION: Varices. COMPARISON: None. TECHNIQUE: Color flow triplex imaging and compression Doppler was performed to evaluate both the deep and the superficial systems bilaterally. To evaluate the superficial system, the examination was performed in the upright position. Color-flow Doppler ultrasound and compression ultrasound were utilized. In addition, maneuvers were utilized to demonstrate reflux. FINDINGS: 1. DEEP VENOUS ULTRASOUND OF THE RIGHT LOWER EXTREMITY: Common Femoral Vein: Compressible, normal respiratory variation and augmented flow. Femoral Vein: Compressible, normal color flow and augmentation. Popliteal Vein: Compressible, normal augmentation. Deep Reflux: There is no evidence of reflux in the deep system in either the common femoral vein, superficial femoral or the popliteal vein. There is no evidence of a Veloz's cyst. 2. SUPERFICIAL ULTRASOUND WITH DOPPLER OF RIGHT LOWER EXTREMITY: GREAT SAPHENOUS VEIN: Saphenofemoral Junction: 0.8 cm; Reflux: 0 ms Proximal Thigh: 0.5 cm; Reflux: 0 ms Mid Thigh: 0.3 cm; Reflux: 2240 ms Distal Thigh: 0.3 cm; Reflux: 2668 ms At Knee: 0.3 cm; Reflux: 1100 ms Proximal Calf: 0.7 cm; Reflux: 1396 ms Mid Calf: 0.2 cm; Reflux: 1024 ms Distal Calf: 0.2 cm; Reflux: 0 ms DUPLICATED MEDIAL GREAT SAPHENOUS VEIN: Diameter: None imaged Reflux: NA DUPLICATED LATERAL GREAT SAPHENOUS VEIN: Diameter: 0.5-0.6 cm. Reflux: NA SMALL SAPHENOUS VEIN: Saphenopopliteal Junction: 0.2 cm; Reflux: 0 ms Proximal: 0.2 cm; Reflux: 0 ms Distal: 0.3 cm; Reflux: 0 ms VEIN OF GIACOMINI: Size: NA Reflux: NA PERFORATORS: Location: Proximal and mid calf. Size: 0.2-0.3 cm. Reflux: NA VARICOSITIES: Location: Small saphenous vein distal segment. At the knee and proximal calf. Size: 0.4-0.5 cm. Reflux: 1740 ms at the knee and 1968 ms in the proximal calf. 3. DEEP VENOUS ULTRASOUND OF THE LEFT LOWER EXTREMITY: Common Femoral Vein: Compressible, normal respiratory variation and augmented flow. Femoral Vein: Compressible, normal color flow and augmentation. Popliteal Vein: Compressible, normal augmentation. Deep Reflux: There is no evidence of reflux in the deep system in either the common femoral vein, superficial femoral or the popliteal vein. There is no evidence of a Veloz's cyst. 4. SUPERFICIAL ULTRASOUND WITH DOPPLER OF LEFT LOWER EXTREMITY: GREAT SAPHENOUS VEIN: Saphenofemoral Junction: 1.0 cm; Reflux: 2040 ms Proximal Thigh: 0.5 cm; Reflux: 0 ms Mid Thigh: 0.5 cm; Reflux: 0 ms Distal Thigh: 0.4 cm; Reflux: 0 ms At Knee: 0.2 cm; Reflux: 0 ms Proximal Calf: 0.2 cm; Reflux: 0 ms Mid Calf: 0.4 cm; Reflux: 0 ms Distal Calf: 0.3 cm; Reflux: 0 ms DUPLICATED MEDIAL GREAT SAPHENOUS VEIN: Diameter: None imaged Reflux: NA DUPLICATED LATERAL GREAT SAPHENOUS VEIN: Diameter: None imaged. Reflux: NA SMALL SAPHENOUS VEIN: Saphenopopliteal Junction: 0.2 cm; Reflux: 0 ms Proximal: 0.2 cm; Reflux: 0 ms Distal: 0.2 cm; Reflux: 0 ms VEIN OF GIACOMINI: Size: NA Reflux: NA PERFORATORS: Location: Mid thigh. Proximal and mid calf. Size: 0.2-0.5 cm. Reflux: NA VARICOSITIES: Location: None Imaged Size: NA Reflux: NA US/US venous duplex LE BI IMPRESSION: Right: Venous insufficiency, great saphenous vein from the mid thigh to the mid calf. Varices with reflux at the knee and proximal calf Left: Venous insufficiency, great saphenous vein at the superficial femoral vein junction. Perforators without reflux. Electronically signed by: César Negron MD 04/12/2025 09:50 AM EDT Dictated By: César De La Cruz MD Signed By: <Electronically signed by César Gifford MD in OV> 04/12/2550 DD/ TD/TT: 04/12/25929 Line Prep Cook: Procedure Note Donotuseinterpreter, Image - 04/12/2025 [place] [address] Ultrasound Report Signed Patient: Dayan Epperson#: [id number] : 1950cct:[id number] Age/Sex: 74 / FADM Date: 04/12/25 Loc: .US Attending Dr: Marci Baer PA-C Ordering Physician: Marci Baer PA-C Date of Service: 04/12/25 Procedure(s): US venous duplex LE BI Accession Number(s): [id number] cc: Anamika Phelps MD; Marci Baer PA-C EXAMINATION: US LOWER EXTREMITY VENOUS (REFLUX EXAM), BILATERAL CLINICAL INFORMATION: Varices. COMPARISON: None. TECHNIQUE: Color flow triplex imaging and compression Doppler was performed to evaluate both the deep and the superficial systems bilaterally. To evaluate the superficial system, the examination was performed in the upright position. Color-flow Doppler ultrasound and compression ultrasound were utilized. In addition, maneuvers were utilized to demonstrate reflux. FINDINGS: 1. DEEP VENOUS ULTRASOUND OF THE RIGHT LOWER EXTREMITY: Common Femoral Vein: Compressible, normal respiratory variation and augmented flow. Femoral Vein: Compressible, normal color flow and augmentation. Popliteal Vein: Compressible, normal augmentation. Deep Reflux: There is no evidence of reflux in the deep system in either the common femoral vein, superficial femoral or the popliteal vein. There is no evidence of a Veloz's cyst. 2. SUPERFICIAL ULTRASOUND WITH DOPPLER OF RIGHT LOWER EXTREMITY: GREAT SAPHENOUS VEIN: Saphenofemoral Junction: 0.8 cm; Reflux: 0 ms Proximal Thigh: 0.5 cm; Reflux: 0 ms Mid Thigh: 0.3 cm; Reflux: 2240 ms Distal Thigh: 0.3 cm; Reflux: 2668 ms At Knee: 0.3 cm; Reflux: 1100 ms Proximal Calf: 0.7 cm; Reflux: 1396 ms Mid Calf: 0.2 cm; Reflux: 1024 ms Distal Calf: 0.2 cm; Reflux: 0 ms DUPLICATED MEDIAL GREAT SAPHENOUS VEIN: Diameter: None imaged Reflux: NA DUPLICATED LATERAL GREAT SAPHENOUS VEIN: Diameter: 0.5-0.6 cm. Reflux: NA SMALL SAPHENOUS VEIN: Saphenopopliteal Junction: 0.2 cm; Reflux: 0 ms Proximal: 0.2 cm; Reflux: 0 ms Distal: 0.3 cm; Reflux: 0 ms VEIN OF GIACOMINI: Size: NA Reflux: NA PERFORATORS: Location: Proximal and mid calf. Size: 0.2-0.3 cm. Reflux: NA VARICOSITIES: Location: Small saphenous vein distal segment. At the knee and proximal calf. Size: 0.4-0.5 cm. Reflux: 1740 ms at the knee and 1968 ms in the proximal calf. 3. DEEP VENOUS ULTRASOUND OF THE LEFT LOWER EXTREMITY: Common Femoral Vein: Compressible, normal respiratory variation and augmented flow. Femoral Vein: Compressible, normal color flow and augmentation. Popliteal Vein: Compressible, normal augmentation. Deep Reflux: There is no evidence of reflux in the deep system in either the common femoral vein, superficial femoral or the popliteal vein. There is no evidence of a Veloz's cyst. 4. SUPERFICIAL ULTRASOUND WITH DOPPLER OF LEFT LOWER EXTREMITY: GREAT SAPHENOUS VEIN: Saphenofemoral Junction: 1.0 cm; Reflux: 2040 ms Proximal Thigh: 0.5 cm; Reflux: 0 ms Mid Thigh: 0.5 cm; Reflux: 0 ms Distal Thigh: 0.4 cm; Reflux: 0 ms At Knee: 0.2 cm; Reflux: 0 ms Proximal Calf: 0.2 cm; Reflux: 0 ms Mid Calf: 0.4 cm; Reflux: 0 ms Distal Calf: 0.3 cm; Reflux: 0 ms DUPLICATED MEDIAL GREAT SAPHENOUS VEIN: Diameter: None imaged Reflux: NA DUPLICATED LATERAL GREAT SAPHENOUS VEIN: Diameter: None imaged. Reflux: NA SMALL SAPHENOUS VEIN: Saphenopopliteal Junction: 0.2 cm; Reflux: 0 ms Proximal: 0.2 cm; Reflux: 0 ms Distal: 0.2 cm; Reflux: 0 ms VEIN OF GIACOMINI: Size: NA Reflux: NA PERFORATORS: Location: Mid thigh. Proximal and mid calf. Size: 0.2-0.5 cm. Reflux: NA VARICOSITIES: Location: None Imaged Size: NA Reflux: NA US/US venous duplex LE BI IMPRESSION: Right: Venous insufficiency, great saphenous vein from the mid thigh to the mid calf. Varices with reflux at the knee and proximal calf Left: Venous insufficiency, great saphenous vein at the superficial femoral vein junction. Perforators without reflux. Electronically signed by: César Negron MD 04/12/2025 09:50 AM EDT RP Dictated By: César De La Cruz MD Signed By: <Electronically signed by César Gifford MDin OV> 04/12/2550 DD/ TD/TT: 04/12/25929 Line Prep Cook: [facility] External Provider CV VASC ULAR PROCEDURES Final Result Performing Organization Address City/[facility]/ZIP Co de Phone Number [facility] [address] [place] [address] * Hepatitis C Antibody with Reflex to HCV, RNA, Quantitative, Real-Time PCR (07/20/2024 2:53 PM EST) Pathologist [facility] Hepatitis C Antibody Nonreactive Nonreactive [facility] Comment:Antibodies to HCV no t detected; does not exclude early acuteHCV infection. Blood Venous blood specimen / Unknown 07/20/2024 2:53 PM EST 07/20/2024 4:17 PM EST Anamika Apple MD LAB BLOOD ORDERABLES Final Result Performing Organization Address City/[facility]/ZIP Co de Phone Number [facility] [address] [place] [address] [phone] * Lipid Panel, Standard (07/20/2024 2:53 PM EST) Triglycerides 92 <150 mg/dL [facility] Comment:Desirable Triglyceri de: less than 150 mg/dLBorderline High Triglyceride 150-199 mg/dLHigh Triglyceride: 200-499 mg/dLVery High Triglyceride: greater than or equal to 5OO mg/dL Cholesterol 184 <200 mg/dL [facility] Comment:Desirable Cholestero l: less than 200 mg/dLBorderline High Cholesterol: 200-239 mg/dLHigh Cholesterol: greater than 239 mg/dL LDL Cholesterol Calculated 81 <100 mg/dL [facility] Comment:Desirable LDL: less than 100 mg/dLNear Optimal/Above Optimal LDL: 110- 129 mg/dLBorderline High LDL: 130-159 mg/dLHigh LDL: 160-189 mg/dLVery High LDL: greater than or equal to 190 mg/dL HDL Cholesterol 85 >40 mg/dL [facility] Comment:Desirable HDL: great er than 40 mg/dL Note: This HDL assay may give artificially low results in patients with liver disease. Blood Venous blood specimen / Unknown 07/20/2024 2:53 PM EST 07/20/2024 4:21 PM EST us Anamika Apple MD LAB BLOOD ORDERABLES Final Result [facility] [address] [place] [phone] * BI MR Breast w and w/o Contrast Bilateral (08/04/2023 10:43 AM EST) Anatomical Region Laterality Modality Breast Bilateral Magnetic Resonan ce 08/04/2023 10:4 3 AM EST Narrative 08/06/2023 4:51 PM EST [address] [address] Magnetic Resonance Report Signed Patient: Dayan Epperson MR#: [id number] 209 : 1950 Acct:[id number] Age/Sex: 73 / F ADM Date: 08/04/23 Loc: HO.MRI Attending Dr: Kat Parkinson SHEET HEATER Ordering Physician: Kat Parkinson NP Date of Service: 08/04/23 Procedure(s): MR breast BI wo/w con Accession Number(s): [id number] cc: Kat Parkinson NP EXAMINATION: MR BREAST [...] in OV> 08/06/23 1647 DD/ 1043 TD/TT: Line Prep Cook: BATOOL Procedure Note Donotuseinterpreter, Image - 08/06/2023 [place] [address] Magnetic Resonance Report Signed Patient: Dayan Epperson#: [id number] 209 : 1950cct:[id number] Age/Sex: 73 / FADM Date: 08/04/23 Loc: HO.MRI Attending Dr: Kat Parkinson NP Ordering Physician: Kat Parkinson NP Date of Service: 08/04/23 Procedure(s): MR breast BI wo/w con Accession Number(s): [id number] cc: Kat Parkinson NP EXAMINATION: MR BREAST [...] in OV> 08/06/23 1647 DD/ 1043 TD/TT: Line Prep Cook: BATOOL Kat Parkinson DISPOSAL WORKER IM MRI PROCEDURES Final Result from Last 3 Months or Most Recently Relevant to Health Maintenance Insurance [facility] MEDEX C[employer] MEDICARE Care Teams Food And Beverage Attendant Relationship Specialty Start Date End Date Anamika hPelps MD [address] [place] [phone] PCP - General Internal Medicine 06/21/24
--- OUTSIDE RECORDS SUMMARY | 2025-05-29 09:50 | XMS_ITS | Encounter Summary ---
Author Organization [facility] Address [address] [place] [phone] Phone Care Team Providers Care Dubbing Machine Operator Name Role Phone Janeth Negron MD Primary Care Provider [phone] Encounter Details Date Type Department Care Team (Late st Contact Info) Description 05/07/2020 Ancillary Orders Virtual Department [address] [place] [phone] Janeth Negron MD [address] [place], [place] [phone] [email or web address] Breast screening Social History Tobacco Use Types [...] or suspicious clusters of microcalcifications. Procedure Note Samson Brannon MD - 07/09/2020 69-year-old female with [...] dense, which could obscurea lesion on mammography. Janeth Negron MD IMG MG EXAMS Final Res ult documented in this encounter Visit Diagnoses Diagnosis Breast screening Breast screening, unspecified Breast screening Breast screening, unspecified documented in this encounter Care Teams Dubbing Machine Operator Relationship Specialty Start Date End Date Janeth Negron MD [address] [place] [phone] [email or web address] PCP - General Family Medicine 04/21/19 documented as of this encounter Additional Source Comments The information contained in this document represents components of the legal health record. It is not the complete legal health record.[facility]
--- OUTSIDE RECORDS SUMMARY | 2025-05-29 09:50 | XMS_ITS | Encounter Summary ---
Author Organization [facility] Address [address] [facility] [address] [place] [address] Phone Care Team Providers Care Cook Station Name Role Phone Janeth Negron MD Primary Care Provider [phone] Encounter Details Date Type Department Care Team (Latest Contact Info) Description 04/25/2019 Ancillary Orders Virtual Department [address] [place] [address] Janeth Negron MD [address] [place], [place] [phone] [email or web address] Visit for screening mammogram; Screening for osteoporosis Social History Tobacco Use Types Packs/Day Years [...] MAMMOGRAM SCREENING WITH TOMOSYNTHESIS WITH CAD (BILATERAL) (07/06/2019 8:30 AM EST) Anatomical Region Laterality Modality Breast Left, Breast Right, Breast Bilateral Bila teral Mammography 07/06/2019 12:4 0 PM EST Impressions 07/06/2019 12:42 PM EST No mammographic change indicative of malignancy. Routine screening is recommended. BI-RADS CATEGORY: 2 - Benign finding. DENSITY: The breast tissue is heterogeneously dense, an appearance which lowers the sensitivity of mammography. POS -CDHMAM2 Narrative 07/06/2019 12:42 PM EST Bilateral full-field digital screening mammography is obtained and read in conjunction with computer-aided detection. Tomosynthesis as well as 2-D C view imaging of both breasts in two planes also obtained. Comparison made to multiple prior, most recent February 07, 2018, and most remote January 08, 2011. No dominant mass, architectural distortion, worrisome asymmetry, or suspicious calcification is identified. No skin or nipple finding of concern is appreciated. Bilateral calcifications are stable. Chronic nodule in the subareolar right breast is stable as well. Procedure Note Howard Ziegler MD - 07/06/2019 Bilateral full-field digital screening mammography is obtained and read inconjunction with computer-aided detection. Tomosynthesis as well as 2-D Cview imaging of both breasts in two planes also obtained. Comparison madeto multiple prior, most recent February 07, 2018, and most remote December. No dominant mass, architectural distortion, worrisome asymmetry, orsuspicious calcification is identified. No skin or nipple finding ofconcern is appreciated. Bilateral calcifications are stable. Chronicnodule in the subareolar right breast is stable as well. IMPRESSION: No mammographic change indicative of malignancy. Routine screening isrecommended. BI-RADS CATEGORY: 2 - Benign finding. DENSITY: The breast tissue is heterogeneously dense, an appearance whichlowers the sensitivity of mammography. POS -CDHMAM2 Janeth Negron MD IMG MG EXAMS Final [...] normal. Z-score of 0.8. Procedure Note Jefferson Walters MD - 07/06/2019 COMPARISON: None. BONE DENSITY [...] the right hip was calculated at 0.819 gm/dv7dnla a T-score of -1.0 falling within the WHO classification of normal.Z-score of 0.3. Total bone mineral density in the left hip was calculated at 0.878 gm/ud3bpip a T-score of -0.5 falling within the WHO classification of normal.Z-score of 0.8. IMPRESSION: Normal bone density. POS - [id number] Janeth Negron MD IMG BD BONE DENSITY DEXA Final Result documented in this encounter Visit Diagnoses Diagnosis Visit for screening mammogram Screening for osteoporosis Special screening for osteoporosis Visit for screening mammogram Screening for osteoporosis Special screening for osteoporosis documented in this encounter Care Teams Cook Station Relationship Specialty Start Date End Date Janeth Negron MD [address] [place] [address] [email or web address] PCP - General Family Medicine 04/21/19 documented as of this encounter Additional Source Comments The information contained in this document represents components of the legal health record. It is not the complete legal health record.[facility]
--- OUTSIDE RECORDS SUMMARY | 2025-05-29 09:50 | XMS_ITS | Encounter Summary ---
Author Organization [employer] Address [address] [facility] 7t [place] [address] Care Team Providers Care Automobile Club Membership Sales Agent Name Role Phone Kat Parkinson Primary Care Provider [phone] Name, Darein MAYER Primary Care Provider [phone] Shanel Euceda NP Primary Care Provider [phone] Anamika Phelps MD Primary Care Provide r Reason for Visit * Reason Onset Date Comments Med Refill 11/13/2022 Encounter Details Date Type Department Care Team (Late st Contact Info) Description 11/13/2022 Telephone [facility] [address] [place], [place] [phone] Kat Parkinson FNP [address], [place] [phone] Med Refill Social History Tobacco Use Types [...] 10:29 AM EDT Medication was sent to [id number] on 11/09/22 Qty: 90 with 1 refill. * Telephone Encounter - Sukumar Paula - 11/13/2022 10:16 AM EDT Tc from pt requesting med refill on lisinopril 20 MG tablet Please sent to [facility] #[id number] - JULIANO SNIDER - [address] [place] [address] documented in this encounter Plan of Treatment Not on file documented as of this encounter Visit Diagnoses Not on filedocumented in this encounter Care Teams Automobile Club Membership Sales Agent Relationship Specialty Start Date End Date Kat Parkinson FNP [address] [place] [address] PCP - General Family Medicine 06/09/22 05/02/24 Name, MD [place] [address] [place] [address] PCP - General Internal Medicine 05/03/24 05/29/24 Shanel Euceda NP [address] [place] [address] PCP - General Family Medicine 05/30/24 06/20/24 Anamika Phelps MD [address] [place] [address] PCP - General Internal Medicine 06/21/24 documented as of this encounter
--- OUTSIDE RECORDS SUMMARY | 2025-05-29 09:50 | XMS_ITS | Encounter Summary ---
Author Organization [employer] Address [address] 7[address] [place] [address] Care Team Providers Care Fiber Optic Technician Name Role Phone Anamika Phelps MD Primary Care Provide r Encounter Details Date Type Department Care Team ([facility] st Contact Info) Description 03/30/2025 Orders Only [facility] [address] [place], [place] [phone] Anamika Phelps MD [address] [place], [place] [phone] Social History Tobacco Use Types Packs/Day Years [...] on file documented as of this encounter Procedures Procedure Name Priority Date/Time Associated Diagnosis Comments VASC US LOWER EXTREMITY VENOUS DUPLEX BILATERAL Routine 04/12/2025 8:49 AM EDT documented in this encounter Results * VASC US Lower Extremity Venous Duplex Bilateral (04/12/2025 8:49 AM EDT) 04/12/2025 8:49 AM EDT Narrative [facility] - 04/12/2025 9:53 AM EDT [place] [address] Ultrasound Report Signed Patient: Dayan Epperson MR#: [id number] : 1950 Acct:[id number] Age/Sex: 74 / F ADM Date: 04/12/25 Loc: HO.US Attending Dr: Marci Baer PA-C Ordering Physician: Marci Baer PA-C Date of Service: 04/12/25 Procedure(s): US venous duplex LE BI Accession Number(s): [id number] cc: Anamika Phelps MD; Marci Baer PA-C [...] signed by César Gifford MD in OV> 04/12/25 0950 DD/ 0849 TD/TT: 04/12/25 0930 Top Lift Scourer: Procedure Note Donotuseinterpreter, Image - 04/12/[address] [address] Ultrasound Report Signed Patient: Dayan Epperson#: [id number] : 2Acct:[id number] Age/Sex: 74 / FADM Date: 04/12/25 Loc: HO.US Attending Dr: Marci Baer PA-C Ordering Physician: Marci Baer PA-C Date of Service: 04/12/25 Procedure(s): US venous duplex LE BI Accession Number(s): [id number] cc: Anamika Phelps MD; Marci Baer PA-C [...] <Electronically signed by César Gifford MDin OV> 04/12/25 0950 DD/ 0849 TD/TT: 04/12/25 0930 Top Lift Scourer: us [facility] External Provider CV VASC ULAR PROCEDURES Final Result [facility] [address] [place] [address] documented in this encounter Visit Diagnoses Not on filedocumented in this encounter Additional Health Concerns Assessment Noted Time PHQ-9 Depression Total Score: 0 07/20/20 24 1:56 PM EST documented as of this encounter Care Teams Fiber Optic Technician Relationship Specialty Start Date End Date Anamika Phelps MD [address] [place] [address] PCP - General Internal Medicine 06/21/24 documented as of this encounter
--- OUTSIDE RECORDS SUMMARY | 2025-05-29 09:50 | XMS_ITS | Encounter Summary ---
Author Organization [employer] Address [address] [facility] 7t [place] [address] Care Team Providers Care Elevator Conductor Name Role Phone Kat Parkinson Primary Care Provider [phone] Lila, [place] MAYER Primary Care Provider [phone] Shanel Euceda NP Primary Care Provider [phone] Anamika Phelps MD Primary Care Provide r Encounter Details Date Type Department Care Team (Late st Contact Info) Description 08/07/2022 Orders Only [facility] MEDICINE [address] [place] [address] Kat Parkinson FNP [address] [place], [place] [phone] Primary hypertension (Primary Dx) Social History Tobacco [...] hypertension documented in this encounter Care Teams Elevator Conductor Relationship Specialty Start Date End Date Kat Parkinson FNP [address] [place], [place] [phone] PCP - General Family Medicine 06/09/22 05/02/24 Darien Sharp MD [address] [place], [place] [phone] PCP - General Internal Medicine 05/03/24 05/29/24 Shanel Euceda NP [address] [place], [place] [phone] PCP - General Family Medicine 05/30/24 06/20/24 Anamika Phelps MD [address] [place] [address] [phone] PCP - General Internal Medicine 06/21/24 documented as of this encounter
== END 2025-05-29 09:58 | disposition home or self-care (01) ==
LOC: HO.HVS 09:06
PROVIDERS: PCP Internal Medicine; Visit Provider Surgery Vascular Surgery
DX: I83.11 Varicose veins of right lower extremity with inflammation (principal)
CPT/HCPCS: 99214

== ENCOUNTER → 2025-05-29 09:05 | Outpatient (BNVA) | payer MEDICARE, BC, SELFPAY | PROVIDERS: PCP Internal Medicine; Visit Provider Surgery Vascular Surgery | DX: I83.11 Varicose veins of right lower extremity with inflammation (principal) | CPT/HCPCS: 99212 ==

== ENCOUNTER 2025-06-08 09:48 | Outpatient (AMB) | payer MEDICARE, BC, SELFPAY ==
[2025-06-08 09:48] VITALS: BMI 31.3
--- NOTE | 2025-06-08 09:48 | A.OFFVIS_ITS ---
Vital Signs 06/08/25 09:48 Height 5 ft 8 in Weight 206 lb BMI 31.3 Intake Visit Reasons: R GSV Venaseal Bowling Ball Grader And Marker Required: No Accompanied by: Self / Same As Patient Allergies No Known Allergies Allergy (Verified 06/08/25 09:48) Physical Exam Vital Signs: BMI result Body Mass Index 31.3 Office Procedures Vascular Office Procedure Details Details: Diagnosis: Right Leg varicose veins with inflammation Procedure: Endovenous Ablation of the right Great Saphenous Vein with VenaSeal Closure System Anesthesia: Local infiltration 5 cc, Director Business Travel: none Estimated Blood Loss: min Specimen: none Duplex ultrasound was used to map out the insufficient saphenous vein, and access was determined and marked on the overlying skin. The depth and diameter of the vein(s) to be treated was documented. The patient was placed supine on the procedure table and the leg was prepped and draped using sterile technique. Ultasound guidance was again used to localize the access site. 1% lidocaine was injected as a local anesthetic in the subcutaneous tissues at the target location in the GSV in the lower leg. Using ultrasound guidance, access was gained at this location with the 19 gauge thin walled access needle and followed by introduction of a short guidewire, location confirmed with ultrasound. A small, 3 mm incision was made at the access site to allow for introduction and placement of the 7 Fr x7cm introducer/dilator. The dilator and guidewire were removed. The 0.035 guidewire from the VenaSeal kit was then introduced and positioned at the saphenofemoral junction using ultrasound guidance. The 80 cm 7 Fr introducer sheath/dilator was positioned 5cm from the saphenofemoral junction. The guidewire and dilator were removed, and the remaining sheath was flushed with sterile saline, with the syringe remaining in place prior to the next steps. The cyanoacrylate adhesive was precisely primed into the 5 F delivery catheter and this catheter/syringe combination was attached within the dispenser gun. This assembly was introduced through the 7F sheath and positioned 5 cm caudal of the saphenofemoral junction under ultrasound guidance. The steps from the IFU were followed for dispensing amounts, locations and compression times, 2 aliquots proximally with 3 minutes of compression, and 1 aliquot every 3 cm distally with 30 sec of compression along the course of the vessel. Following the last injection and compression sequence, the catheter and introducer sheath were pulled out from the access site. Hemostasis was achieved with manual compression and an adhesive bandage was applied to the incision. Ultrasound confirmed complete coaptation and closure of the treated segments of the GSV, and the absence of any DVT at the saphenofemoral junction. Treatment time was approximately 5 minutes and the vein length treated was 35 cm. The drapes were removed and the patient cleaned and prepared for discharge. Post op ultrasound check is scheduled for 48-72 hours and the patient was given written post-op instructions. 37902 - Endoven Ther Chem Adhes 1st All charges added?: Procedure code (CPT) selection complete Assessment & Plan Assessment & Plan (1) Varicose veins of right lower extremity with inflammation: Comment: 06/08/2025 - right great saphenous vein Cyanoacralate ablation Code(s): I83.11 - Varicose veins of right lower extremity with inflammation Category: Medical Plan: See op note Coding Level of Care Code Procedure Only Diagnoses Varicose veins of right lower extremity with inflammation I83.11 CPT Codes Details - Vascular 3: 89992 - Endoven Ther Chem Adhes 1st ([id number])
--- OUTSIDE RECORDS SUMMARY | 2025-06-08 10:32 | XMS_ITS | Encounter Summary ---
Author Organization [facility] Address [address] [facility] [address] [place] [address] Phone Care Team Providers Care Automatic Lathe Setter Name Role Phone Janeth Negron MD Primary Care Provider [phone] Encounter Details Date Type Department Care Team (Latest Contact Info) Description 04/25/2019 Ancillary Orders Virtual Department [address] [place] [address] Janeth Negron MD [address] [place], [place] [phone] [email or web address] Visit for screening mammogram; Screening for [...] the right hip was calculated at 0.819 gm/et9vojw a T-score of -1.0 falling within the WHO classification of normal.Z-score of 0.3. Total bone mineral density in the left hip was calculated at 0.878 gm/pk7qfwf a T-score of -0.5 falling within the [...] osteoporosis documented in this encounter Care Teams Automatic Lathe Setter Relationship Specialty Start Date End Date Janeth Negron MD [address] [place] [address] [email or web address] PCP - General Family Medicine 04/21/19 documented as of this encounter Additional Source Comments The information contained in this document represents components of the legal health record. It is not the complete legal health record.[facility]
--- OUTSIDE RECORDS SUMMARY | 2025-06-08 10:32 | XMS_ITS | Patient Health Record ---
Author Organization [facility] Address [address] [place] [address] Care Team Providers Care Polisher And Sander Name Role Phone Pam Pizarro MD Primary Care Provider Clarence Babcock [phone] Allergies Allergen (clinical drug ingredient) Drug/Non Drug Allergy documented on EMR Reaction Allergy Type Onset Date Status food/enviromental/ch em ical (uncoded) Unknown Allergy Active Reason For Referral No Information Medications Medication SIG (Take, Route, Fr equency, Duration) Notes Start Date End Date Status MoviPrep 100 GM as directed Orally a s directed; Duration: 1 dose 07/13/2014 Active Lisinopril 5 MG 1 tablet Orally Once a day Active Problems Problem Type SNOMED Code ICD Code Onset Dates Problem Status W/U Status Risk Notes Problem Pre-surgery evaluation (409017371) Other specified pre-operative examination (V72.83) Active confirmed Problem Colon cancer screening (716145403) Colon cancer screening (V76.51) Active confirmed Plan Of Treatment Future Test Test Name Order Date COLONOSCOPY 07/10/2014 Insurance Providers Payer Name Payer Address Payer Phone Subscriber Number Group Number Insured Name Patient Relationship to Insured Coverage Start Date Coverage End Date O BLUE [employer] PROF[employer]AL CLAIMS [address] [place] [address] [id number] FELICIA KNOWLES Self - patient is the insured Medical (General) History Medical History History ICD Code HTN Mild Hepatitis when she had [place] in [place]-resolved Fibromyalgia/Chronic Fatigue Syndrome Gallstones--asymptomatic-seen on an [place] Neg. Hemoccults approx in 2008 or 2009 Denies NH,DM,CVA,Lung disease,renal dise ase Surgical History Surgery Date(Month/Year) deviated septum repair benign breast tumor removed 1974 D & C 1986 ovarian cyst removed-benign 2000
--- OUTSIDE RECORDS SUMMARY | 2025-06-08 10:32 | XMS_ITS | Encounter Summary ---
Author Organization [facility] Address [address] [place] [address] Phone Care Team Providers Care Ship Boat Or Barge Mate Name Role Phone Janeth Negron MD Primary Care Provider [phone] Encounter Details Date Type Department Care Team (Late st Contact Info) Description 05/07/2020 Ancillary Orders Virtual Department [address] [place] [address] Janeth Negron MD [address] [place], [place] [phone] [email or web address] Breast screening Social History Tobacco Use Types [...] unspecified documented in this encounter Care Teams Ship Boat Or Barge Mate Relationship Specialty Start Date End Date Janeth Negron MD [address] [place] [address] [email or web address] PCP - General Family Medicine 04/21/19 documented as of this encounter Additional Source Comments The information contained in this document represents components of the legal health record. It is not the complete legal health record.[facility]
--- OUTSIDE RECORDS SUMMARY | 2025-06-08 10:32 | XMS_ITS | Clinical Summary ---
Author Organization [facility] Address [address] [place] [address] Phone Care Team Providers Care Dispatcher Radioactive Waste Disposal Name Role Phone Janeth Negron MD Primary Care Provider [phone] Family History Medical History Relation Comments Breast [...] 2) 2002 MAMMOGRAM 07/09/2022 07/09/2020, 07/06/2019, 02/07/2018 INFLUENZA VACCINE (#1) 2025 COVID-19 VACCINE ( - 2024-2 6 season) 2025 01/14/2022, 07/17/2021, 06/19/2021 RSV VACCINE (1 - [...] the right hip was calculated at 0.819 gm/bm4zhxx a T-score of -1.0 falling within the WHO classification of normal.Z-score of 0.3. Total bone mineral density in the left hip was calculated at 0.878 gm/sk1ukxq a T-score of -0.5 falling within the WHO classification of normal.Z-score of 0.8. IMPRESSION: Normal bone density. POS - [id number] Janeth Negron MD [facility] [place] BONE DENSITY DEXA Final Result from Last 3 Months or Most Recently Relevant to Health Maintenance Insurance [employer] SUPPLEMENT MEDICARE PART A & B [employer] MEDEX SUPPLEMENT MEDICARE PART A & B [employer] MEDEX SUPPLEMENT MEDICARE PART A & B [employer] MEDEX SUPPLEMENT MEDICARE PART A & B [employer] MEDEX SUPPLEMENT MEDICARE PART A & B [facility] MEDEX SUPPLEMENT MEDICARE PART A & B [employer] MEDEX SUPPLEMENT MEDICARE PART A & B [address] [place] [phone] [employer] MEDEX SUPPLEMENT MEDICARE PART A & B [facility] MEDEX SUPPLEMENT MEDICARE PART A & B Care Teams Dispatcher Radioactive Waste Disposal Relationship Specialty Start Date End Date Janeth Negron MD [address] [place] [address] [email or web address] PCP - General Family Medicine 04/21/19 Additional Source Comments The information contained in this document represents components of the legal health record. It is not the complete legal health record.[facility]
--- OUTSIDE RECORDS SUMMARY | 2025-06-08 10:32 | XMS_ITS | Encounter Summary ---
Author Organization [facility] Address [address] [place] [address] Phone Care Team Providers Care Systems Support Engineer Name Role Phone Janeth Negron MD Primary Care Provider [phone] Encounter Details Date Type Department Care Team (Late st Contact Info) Description 05/07/2020 Procedure Pass [address] [address] Social History Tobacco Use Types Packs/Day Years [...] on filedocumented in this encounter Care Teams Systems Support Engineer Relationship Specialty Start Date End Date Janeth Negron MD [address] [place] [address] [email or web address] PCP - General Family Medicine 04/21/19 documented as of this encounter Additional Source Comments The information contained in this document represents components of the legal health record. It is not the complete legal health record.[facility]
--- OUTSIDE RECORDS SUMMARY | 2025-06-08 10:32 | XMS_ITS | Encounter Summary ---
Author Organization [facility] Address [address] [place] [address] Phone Care Team Providers Care Radio Board Operator Announcer Name Role Phone Elisabeth Pizarro MD Primary Care Provider [phone] Janeth Negron MD Primary Care Provider [phone] Encounter Details Date Type Department Care Team ([facility] st Contact Info) Description 12/30/2017 Ancillary Orders Virtual Department [address] [place] [address] Elisabeth Pizarro MD [address] [facility], [address] [place] [address] [email or web address] Breast screening Social History Tobacco Use [...] unspecified documented in this encounter Care Teams Radio Board Operator Announcer Relationship Specialty Start Date End Date Elisabeth Pizarro MD [email or web address] PCP - General 06/14/17 04/20/19 Janeth Negron MD [address] [place] [address] [email or web address] PCP - General Family Medicine 04/21/19 documented as of this encounter Additional Source Comments The information contained in this document represents components of the legal health record. It is not the complete legal health record.[facility]
== END 2025-06-08 11:03 | disposition home or self-care (01) ==
LOC: HO.HVS 09:48
PROVIDERS: PCP Internal Medicine; Visit Provider Surgery Vascular Surgery
DX: I83.11 Varicose veins of right lower extremity with inflammation (principal)
CPT/HCPCS: 36482

== ENCOUNTER → 2025-06-08 09:48 | Outpatient (BNVA) | payer MEDICARE, BC, SELFPAY | PROVIDERS: PCP Internal Medicine; Visit Provider Surgery Vascular Surgery | DX: I83.11 Varicose veins of right lower extremity with inflammation (principal) | CPT/HCPCS: 36482 ==